=== PATIENT | male | born 1955 | race African-American/Black ===

== ENCOUNTER 2016-08-25 14:02 | Inpatient (IN) | payer OTHER ==
[~2016-08-25] VITALS: Ht 188 cm; Wt 113.8 kg
[~2016-08-25 14:02] MED LIST: BENAZEPRIL; PAIN MED; [UNRECOGNIZED DRUG - OTHER]
[2016-08-25] MEDS ORDERED: NITROGLYCERIN 2% 1 GM OINT PKT TD STA (14:34)
[2016-08-25] MEDS ORDERED: ASPIRIN 81 MG TAB PO STA (14:34)
[2016-08-25] MEDS ORDERED: LEVO75TA5 PO (14:47)
[2016-08-25] MEDS ORDERED: HC30CR25 TOP (14:47)
[2016-08-25] MEDS ORDERED: ASPI81TA3 PO (14:47)
[2016-08-25] MEDS ORDERED: HYD25 PO (14:47)
[2016-08-25] MEDS ORDERED: METO50TA16 PO (14:48)
[2016-08-25] MEDS ORDERED: ATOR40TA68 PO (14:48)
[2016-08-25] MEDS ORDERED: BENA40TA54 PO (14:48)
[2016-08-25] MEDS ORDERED: NAPR-688 PO (14:49)
[2016-08-25] MEDS ORDERED: TAMS0.4C2 PO (14:49)
[2016-08-25] MEDS ORDERED: NORT50CA PO (14:49)
[2016-08-25] MEDS ORDERED: NIFE90TA21 PO (14:49)
[2016-08-25] MEDS ORDERED: NITROGLYCERIN (SL) 0.4 MG TAB SL PRN ×2 (15:00→20:00)
--- NOTE | 2016-08-25 15:12 | RADRPT ---
PROCEDURE: Chest Radiograph. CLINICAL INDICATION: Chest pain. Shortness of breath. TECHNIQUE: Single frontal chest radiograph. COMPARISON: None available FINDINGS: The heart is mildly enlarged. There is moderate central vascular congestion. Diffuse interstitial opacities are present, likely related to pulmonary edema. No confluent or lobar infiltrate is seen. Trace effusions may be present. The bones are intact. IMPRESSION: 1. Cardiomegaly, central vascular congestion, and suggested pulmonary edema. Recommend correlation with CHF. 2. Possible trace bilateral pleural effusions. This can be confirmed with lateral view if clinic ally indicated. RPTAT: KK .Yuri Groves MD, MD Date Time Electronically viewed and signed by .Yuri Groves MD, MD on 08/25/2016 15:12 .B/
[2016-08-25 15:18] LABS: BASOPHILS % 0.6 % (0.0-2.0); EOSINOPHILS # 0.1 10^3/ul (0.0-0.5); EOSINOPHILS % 1.9 % (0.0-7.0); HEMOGLOBIN 13.9 g/dl (14.0-18.0); LYMPHOCYTES # 1.7 10^3/ul (0.8-2.9); LYMPHOCYTES % 29.3 % (15.0-51.0); MEAN CORPUSCULAR HEMOGLOBIN 30.4 pg (29.0-33.0); MEAN CORPUSCULAR VOLUME 92.1 fl (82.0-101.0); MEAN PLATELET VOLUME 12.3 fl (7.4-10.4); MONOCYTE # 0.5 10^3/ul (0.3-0.9); MONOCYTES % 8.1 % (0.0-11.0); NEUTROPHIL # 3.6 10^3/ul (1.6-7.5); NEUTROPHILS % 60.1 % (39.0-77.0); PLATELET COUNT 147 10^3/UL (140-440); RED BLOOD COUNT 4.56 10^6/ul (4.70-6.10); RED CELL DISTRIBUTION WIDTH 13.4 % (11.5-14.5); UNCORRECTED WBC 5.9 10^3/ul (4.8-10.8); WHITE BLOOD COUNT 5.9 10^3/ul (4.8-10.8)
[2016-08-25 15:21] LABS: INR 0.98
[2016-08-25 15:22] LABS: PARTIAL THROMBOPLASTIN TIME 30.9 Sec (25.0-35.0)
[2016-08-25 15:23] LABS: CONDITION 1
[2016-08-25 15:27] LABS: CREATININE 1.07 mg/dl (0.61-1.24)
[2016-08-25 15:28] LABS: CALCIUM 9.5 mg/dl (8.4-10.2)
[2016-08-25 15:30] LABS: POTASSIUM 2.9 mmol/L (3.5-5.1)
[2016-08-25] MEDS ORDERED: POTASSIUM CHLORIDE (SR) 20 MEQ TAB PO STA (15:30)
[2016-08-25 15:38] LABS: TROPONIN-I 0.014 ng/ml (0.00-0.12)
[2016-08-25] MEDS ORDERED: ACETAMINOPHEN 325 MG TAB PO PRN (17:30)
[2016-08-25] MEDS ORDERED: ONDANSETRON 4 MG INJ IV PRN ×2 (17:30→20:30)
--- NOTE | 2016-08-25 18:54 | ERA ---
ER Documentation Chief Complaint Date/Time DATE: 08/25/16 TIME: 18:51 Chief Complaint WORSENING SOB FOR THE PAST FEW MONTHS. WORSE NOW WITH CHEST PAIN HPI Patient is a 61-year-old male with hypertension and anemia presents with chest pain and shortness of breath. He said that his chest pain was "very hard". He had this happen last year as well. The symptoms started last night. The pain comes and goes. He describes it as a 3 out of 10 pain and it is midsternal. There is no radiation. Upon review of old medical records the patient one previous visit in 2011. ROS All systems reviewed and are negative except as per history of present illness. Medications Home Meds Reported Medications Tamsulosin Hcl* (Tamsulosin Hcl*) 0.4 Mg Cap.er.24h, 0.4 MG PO HS, CAP 08/25/16 Nortriptyline Hcl* (Nortriptyline Hcl*) 50 Mg Capsule, 50 MG PO QHS, TAB 08/25/16 Naproxen* (Naproxen*) 500 Mg Tablet, 500 MG PO BID Y for PAIN, TAB 08/25/16 Nifedipine* (Nifedipine ER*) 90 Mg Tablet.sa, 90 MG PO DAILY, TAB.SA 08/25/16 Metoprolol Succinate* (Toprol XL*) 50 Mg Tab.er.24h, 50 MG PO DAILY, #30 TAB 08/25/16 Benazepril Hcl* (Lotensin*) 40 Mg Tablet, 80 MG PO DAILY, #30 TAB 08/25/16 Atorvastatin* (Atorvastatin*) 40 Mg Tablet, 40 MG PO QHS, #30 TAB 08/25/16 Levothyroxine Sodium* (Levothyroxine Sodium*) 75 Mcg Tablet, 75 MCG PO BEFORE BREAKFAST, #30 TAB 08/25/16 Hydrocortisone* Topical (Hydrocortisone* Topical) 2.5%-28.3 Gm Cream..g., 1 APPLIC TOP BID, TUB 08/25/16 Aspirin* (Aspirin* Chew) 81 Mg Tab.chew, 81 MG PO DAILY, TAB.CHEW 08/25/16 Hydrochlorothiazide* (Hydrochlorothiazide*) 25 Mg Tab, 25 MG PO DAILY, #30 TAB 08/25/16 Discontinued Reported Medications [Pain Med] No Conflict Check 09/20/11 [Benazepril] No Conflict Check 09/20/11 [Finedipine] No Conflict Check 09/20/11 Allergies Allergies: Coded Allergies: No Known Allergy (Unverified , 09/20/11) PMhx/Soc Hx Cardiac Disorders: Yes (HTN (DENIES OTHER PMH/SURGERIES), HYPER LIPIDS) Hx Psychiatric Problems: No Hx Miscellaneous Medical Probl: No Hx Alcohol Use: No Hx Substance Use: No Hx Tobacco Use: No Smoking Status: Never smoker FmHx Family History: No coronary disease Physical Exam Vitals Vital Signs Date Time Temp Pulse Resp B/P Pulse Ox O2 Delivery O2 Flow Rate FiO2 08/25/16 16:28 56 18 156/108 97 Room Air 08/25/16 14:08 98.6 79 24 192/100 97 Physical Exam Const: No acute distress Head: Atraumatic Eyes: Normal Conjunctiva ENT: Normal External Ears, Nose and Mouth. Neck: Full range of motion..~ No meningismus. Resp: Clear to auscultation bilaterally Cardio: Regular rate and rhythm, no murmurs Abd: Soft, non tender, non distended. Normal bowel sounds Skin: No petechiae or rashes Back: No midline or flank tenderness Ext: No cyanosis, or edema Neur: Awake and alert Psych: Normal Mood and Affect Result Diagram: 08/25/16 1440 08/25/16 1440 Results 24 hrs Laboratory Tests Test 08/25/16 14:40 08/25/16 14:45 Anion Gap 14 Basophils # 0.010^3/ul Basophils % 0.6% Blood Morphology Comment Blood Urea Nitrogen 20mg/dl Calcium Level 9.5mg/dl Carbon Dioxide Level 32mmol/L Chloride Level 101mmol/L Creatinine 1.07mg/dl Eosinophils # 0.110^3/ul Eosinophils % 1.9% Glucose Level 98mg/dl Hematocrit 42.0% Hemoglobin 13.9g/dl Lymphocytes # 1.710^3/ul Lymphocytes % 29.3% Mean Corpuscular Hemoglobin 30.4pg Mean Corpuscular Hemoglobin Concent 33.0g/dl Mean Corpuscular Volume 92.1fl Mean Platelet Volume 12.3fl Monocytes # 0.510^3/ul Monocytes % 8.1% Neutrophils # 3.610^3/ul Neutrophils % 60.1% Nucleated Red Blood Cells # 0.010^3/ul Nucleated Red Blood Cells % 0.0/100WBC Platelet Count 74613^3/UL Potassium Level 2.9mmol/L Red Blood Count 4.5610^6/ul Red Cell Distribution Width 13.4% Sodium Level 144mmol/L Troponin I 0.014ng/ml White Blood Count 5.910^3/ul Activated Partial Thromboplast Time 30.9Sec INR International Normalized Ratio 0.98 Prothrombin Time 13.0Sec Prothrombin Time Ratio 1.0 Current Medications Medications (Trade) Dose Ordered Sig/Ankush Route PRN Reason Start Time Stop Time Status Last Admin Dose Admin Aspirin (Aspirin) 162 mg ONCE STAT PO 08/25/16 14:34 08/25/16 14:35 DC 08/25/16 15:04 Nitroglycerin (Nitroglycerin 2% Oint) 1 inch ONCE STAT TD 08/25/16 14:34 08/25/16 14:35 DC 08/25/16 15:04 Nitroglycerin (Nitroglycerin (Sl Tab) 0.4 Mg) 1 tab Q5M UP TO 3 DOSES PRN SL CHEST PAIN 08/25/16 15:00 08/25/16 15:04 Potassium Chloride (Klor-Con 20) 40 meq ONCE STAT PO 08/25/16 15:30 08/25/16 15:31 DC 08/25/16 15:58 Ondansetron HCl (Zofran Inj) 4 mg ER BRIDGE PRN IV NAUSEA AND/OR VOMITING 08/25/16 17:30 08/26/16 17:29 Acetaminophen (Tylenol Tab) 650 mg ER BRIDGE PRN PO MILD PAIN/FEVER 08/25/16 17:30 08/26/16 17:29 Procedures/MDM EKG #1 read by me: Rate/Rhythm: Regular rate and rhythm at a rate of 80 Intervals: Normal Impression: Sinus rhythm with flipped T waves in the lateral leads EKG #2 read by me: Rate/Rhythm: Regular rate and rhythm at a rate of 82 Intervals: Normal Impression: Sinus rhythm with flipped T waves in the lateral leads PROCEDURE: Chest Radiograph. CLINICAL INDICATION: Chest pain. Shortness of breath. TECHNIQUE: Single frontal chest radiograph. COMPARISON: None available FINDINGS: The heart is mildly enlarged. There is moderate central vascular congestion. Diffuse interstitial opacities are present, likely related to pulmonary edema. No confluent or lobar infiltrate is seen. Trace effusions may be present. The bones are intact. IMPRESSION: 1. Cardiomegaly, central vascular congestion, and suggested pulmonary edema. Recommend correlation with CHF. 2. Possible trace bilateral pleural effusions. This can be confirmed with lateral view if clinically indicated. RPTAT: KK .Yuri Groves MD, Date Time Electronically viewed and signed by .Yuri Groves MD, MD on 2016 15:12 Patient is a 61-year-old male with hypertension who presents with chest pain. The patient has risk factors of hypertension and his age with a complaint of chest pain shortness of breath which I am concerned may be acute coronary syndrome. The patient was given aspirin nitroglycerin. The patient will be admitted to the care of Dr. Morgan as the patient has [employer] insurance. The patient will be admitted to a telemetry bed. At this point I doubt pneumonia, pneumothorax, pulmonary embolism, or aortic dissection. The patient has hypokalemia and was given potassium by mouth. Departure Diagnosis: Primary Impression: Chest pain Qualified Code: R07.9 - Chest pain, unspecified type Additional Impressions: Shortness of breath Hypokalemia Condition: RACHEL Zafar MD Aug 25, 2016 18:53
[2016-08-25] MEDS ORDERED: LABETALOL HCL 20MG INJ IV ONE (19:30)
[2016-08-25] MEDS ORDERED: morphine 2 MG INJ IV PRN (20:00)
--- NOTE | 2016-08-25 20:00 | QN ---
Documentation Comment [id number] WAGNER JIMÉNEZ MD Aug 25, 2016 20:00
[2016-08-25] MEDS ORDERED: MAGNESIUM HYDROXIDE 30ML CUP PO PRN (20:30)
[2016-08-25] MEDS ORDERED: BISACODYL (EC) 5 MG TAB PO PRN (20:30)
[2016-08-25] MEDS ORDERED: NACL 0.9% 3 ML SYG IV SCH (20:30)
[2016-08-25] MEDS ORDERED: DOCUSATE SODIUM 100 MG CAP PO PRN (20:30)
--- NOTE | 2016-08-25 20:43 | HP ---
DATE OF ADMISSION: 08/25/2016 HISTORY OF PRESENT ILLNESS: The patient is a 61-year-old male with history of hypertension, present ed with chest pain. The patient in the ER was seen, blood pressure 192/100 and patient's potassium 2.9, is being admitted for further management. PAST MEDICAL HISTORY: Hypertension. The patient denies any diabetes mellitus. Has history of dysl ipidemia, history of BPH. ALLERGY HISTORY: NEGATIVE. FAMILY HISTORY: Hypertension. SOCIAL HISTORY: Noncontributory. MEDICATION HISTORY: 1. Aspirin. 2. Lipitor. 3. Benazepril. 4. Hydrochlorothiazide. 5. Hydrocortisone cream. 6. Levothyroxine. 7. Metoprolol. 8. Naproxen. 9. Nifedipine. 10. Nortriptyline. 11. Flomax. REVIEW OF SYSTEMS: HEENT: Unremarkable. RESPIRATORY: Unremarkable. CARDIOVASCULAR: As mentioned above. ABDOMEN: Unremarkable. EXTREMITIES: Unremarkable. GENITOURINARY: Unremarkable. MUSCULOSKELETAL: Unremarkable. PHYSICAL EXAMINATION: GENERAL: The patient is awake and alert. VITAL SIGNS: As mentioned above. HEAD: Atraumatic, normocephalic. EYES: Pupils equal, reactive to light. NECK: Supple. No JVD. LUNGS: Clear. CARDIOVASCULAR: S1, S2 are normal. ABDOMEN: Soft, nontender. Bowel sounds plus. No palpable mass or hepatosplenomegaly. No guarding , rebound tenderness. EXTREMITIES: No cyanosis, clubbing, edema. CENTRAL NERVOUS SYSTEM: The patient is awake, alert. No deficit. EKG shows sinus rhythm. The patient with left atrial enlargement and PVCs noted. The patient also has ____ in the V4, V5 and V6 with nonspecific ST-T changes. IMPRESSION: 1. Chest pain. 2. Rule out myocardial infarction. 3. Hypertension. 4. Hypokalemia. 5. Dyslipidemia. 6. Hypothyroidism by history. PLAN: Give this patient oxygen, aspirin, potassium supplementation, blood pressure controlled, card iology consultation, 2D echo. Orders were done. Dictated By: WAGNER BEAR/NTS Conf#: [id number] DID#: [id number]
[2016-08-25 20:55] VITALS: BP 177/85; PULSE 75; PULSE 79; RESP 20
[2016-08-25] MEDS: HYDROCORTISONE 2.5% 20 GM CR TOP SCH (21:00)
[2016-08-25] MEDS ORDERED: NORTRIPTYLINE 50 MG CAP PO SCH (21:00)
[2016-08-25 21:21] VITALS: Ht 188 cm; Wt 113.8 kg
[2016-08-25] MEDS: AL HYDROX/MG HYDROX/SIMETH 30 ML CUP PO SCH (22:04)
[2016-08-25] MEDS: ATORVASTATIN 40 MG TAB PO SCH (22:04)
[2016-08-25] MEDS: TAMSULOSIN (SR) 0.4 MG CAP PO SCH (22:05)
[2016-08-25 22:29] LABS: CK-MB 5.32 ng/ml (0.0-2.4)
[2016-08-25 22:30] LABS: TROPONIN-I 0.019 ng/ml (0.00-0.12)
[2016-08-25] MEDS: NS + KCL 20 MEQ 1,000 ML IV SCH (23:02)
[2016-08-25] MEDS: CALCIUM CARBONATE 500 MG CHEW TAB PO SCH (23:03)
[2016-08-25] MEDS: NORTRIPTYLINE 25 MG CAP PO SCH (23:04)
[2016-08-25] MEDS: hydrALAzine 20 MG INJ IV PRN (23:06)
[2016-08-25] MEDS: ACETAMINOPHEN 325 MG TAB PO PRN (23:21)
[2016-08-25 23:26] VITALS: BP 169/93; PULSE 75
[2016-08-26] VITALS (13 sets, daily range): BP systolic 133–181; BP diastolic 75–102; PULSE 79–92; RESP 18–20
[2016-08-26] MEDS: PANTOPRAZOLE 40 MG INJ IV SCH (05:11)
[2016-08-26] MEDS: LEVOTHYROXINE 75 MCG TAB PO SCH (06:42)
[2016-08-26] MEDS: ASPIRIN 81 MG TAB PO SCH (08:10)
[2016-08-26] MEDS: CALCIUM CARBONATE 500 MG CHEW TAB PO SCH ×4 (08:10→20:07)
[2016-08-26] MEDS: NIFEdipine (XL) 90 MG TAB PO SCH (08:10)
[2016-08-26] MEDS: AL HYDROX/MG HYDROX/SIMETH 30 ML CUP PO SCH ×4 (08:11→20:07)
[2016-08-26] MEDS: HYDROCHLOROTHIAZIDE 25 MG TAB PO SCH (08:11)
[2016-08-26] MEDS: METOPROLOL (XL) 50 MG TAB PO SCH (08:11)
[2016-08-26] MEDS: ENOXAPARIN 40 MG/0.4 ML SYG SC SCH (08:15)
[2016-08-26] MEDS: HYDROCORTISONE 2.5% 20 GM CR TOP SCH ×2 (08:17→20:08)
[2016-08-26 08:30] LABS: TROPONIN-I 0.016 ng/ml (0.00-0.12)
[2016-08-26] MEDS: BENAZEPRIL 40 MG TAB PO SCH (08:32)
[2016-08-26 08:43] LABS: CK-MB 3.69 ng/ml (0.0-2.4)
[2016-08-26 09:30] LABS: CHOL/HDL RATIO 6.3 RATIO
[2016-08-26] MEDS: ACETAMINOPHEN 325 MG TAB PO PRN (12:23)
--- NOTE | 2016-08-26 13:52 | PN ---
Date/Time of Note Date/Time of Note DATE: 08/26/16 TIME: 13:51 Assessment/Plan VTE Prophylaxis VTE Prophylaxis Intervention: other Lines/Catheters [facility] Type [facility]from [facility] [place] Urinary Cath still in place: No Assessment/Plan Chief Complaint/Hosp Course IMPRESSION: 1. Chest pain. 2. Rule out myocardial infarction. 3. Hypertension. 4. Hypokalemia. 5. Dyslipidemia. 6. Hypothyroidism by history. plan dr armas to see Problems: Subjective 24 Hr Interval Summary Cardiovascular: no complaints Gastrointestinal: no complaints Genitourinary: no complaints Exam/Review of Systems Vital Signs Vitals Vital Signs Date Time Temp Pulse Resp B/P Pulse Ox O2 Delivery O2 Flow Rate FiO2 08/26/16 12:07 83 08/26/16 12:00 98.3 20 152/88 99 08/26/16 08:42 Nasal Cannula 2.0 Intake and Output 08/25/16 08/25/16 08/26/16 15:00 23:00 07:00 Intake Total 1060 ml Output Total 1080 ml Balance -20 ml Exam Respiratory: clear to auscultation Cardiovascular: regular rate and rhythm Gastrointestinal: soft Musculoskeletal: nl extremities to inspection Extremities: normal pulses Results Result Diagram: 08/25/16 1440 08/25/16 1440 Results 24 hrs Laboratory Tests Test 08/25/16 14:40 08/25/16 14:45 08/25/16 21:00 08/26/16 00:18 Anion Gap 14 Basophils # 0.0 Basophils % 0.6 Blood Morphology Comment Blood Urea Nitrogen 20 Calcium Level 9.5 Carbon Dioxide Level 32 H Chloride Level 101 Creatinine 1.07 Eosinophils # 0.1 Eosinophils % 1.9 Glucose Level 98 Hematocrit 42.0 Hemoglobin 13.9 L Lymphocytes # 1.7 Lymphocytes % 29.3 Mean Corpuscular Hemoglobin 30.4 Mean Corpuscular Hemoglobin Concent 33.0 Mean Corpuscular Volume 92.1 Mean Platelet Volume 12.3 H Monocytes # 0.5 Monocytes % 8.1 Neutrophils # 3.6 Neutrophils % 60.1 Nucleated Red Blood Cells # 0.0 Nucleated Red Blood Cells % 0.0 Platelet Count 147 Potassium Level 2.9 *L Red Blood Count 4.56 L Red Cell Distribution Width 13.4 Sodium Level 144 Troponin I 0.014 0.019 0.022 White Blood Count 5.9 Activated Partial Thromboplast Time 30.9 INR International Normalized Ratio 0.98 Prothrombin Time 13.0 Prothrombin Time Ratio 1.0 Creatine Kinase 163 Creatine Kinase Index 3.3 Creatinine Kinase MB (Mass) 5.32 H Test 08/26/16 06:40 Cholesterol Level 179 Cholesterol/HDL Ratio 6.3 Creatine Kinase 143 Creatine Kinase Index 2.6 Creatinine Kinase MB (Mass) 3.69 H HDL Cholesterol 28 L LDL Cholesterol, Calculated 122 Triglycerides Level 145 Troponin I 0.016 Medications Medications Current Medications Aspirin (Aspirin) 81 mg DAILY PO Last administered on 08/26/16 08:10; Admin Dose 81 MG; Start 08/26/16 at 09:00 Atorvastatin Calcium (Lipitor) 40 mg QHS PO Last administered on 08/25/16 22: 04; Admin Dose 40 MG; Start 08/25/16 at 21:00 Benazepril HCl (Lotensin) 80 mg DAILY PO Last administered on 08/26/16 08:32; Admin Dose 80 MG; Start 08/26/16 at 09:00 Hydrochlorothiazide (Hydrochlorothiazide) 25 mg DAILY PO Last administered on 08:11; Admin Dose 25 MG; Start 08/26/16 at 09:00 Hydrocortisone (Hydrocortisone 2.5% Cr) 1 applic BID TOP Last administered on 08:17; Admin Dose 1 APPLIC; Start 08/25/16 at 21:00 Metoprolol Succinate (Toprol Xl) 50 mg DAILY PO Last administered on 08/26/16 08:11; Admin Dose 50 MG; Start 08/26/16 at 09:00 Nifedipine (Procardia Xl) 90 mg DAILY PO Last administered on 08/26/16 08:10; Admin Dose 90 MG; Start 08/26/16 at 09:00 Tamsulosin HCl (Flomax) 0.4 mg HS PO Last administered on 08/25/16 22:05; Admin Dose 0.4 MG; Start 08/25/16 at 21:00 Al Hydrox/Mg Hydrox/Simethicone (Mag-Al Plus) 30 ml QID PO Last administered on 08/26/16 12:23; Admin Dose 30 ML; Start 08/25/16 at 21:00 Calcium Carbonate (Tums) 500 mg QID PO Last administered on 08/26/16 12:23; Admin Dose 500 MG; Start 08/25/16 at 21:00 Nitroglycerin (Nitroglycerin (Sl Tab) 0.4 Mg) 1 tab Q5M PRN SL CHEST PAIN; Start 08/25/16 at 20:00 Morphine Sulfate 2 mg 2 mg Q2H PRN IV PAIN LEVEL 4-6; Start 08/25/16 at 20:00 Potassium Chloride/Sodium Chloride (NS-KCl 20 Meq) 1,000 ml @ 40 mls/hr Q24H IV Last administered on 08/25/16 23:02; Admin Dose 40 MLS/HR; Start 08/25/16 at 20:03 Ondansetron HCl (Zofran Inj) 4 mg Q6H PRN IV NAUSEA AND/OR VOMITING; Start at 20:30 Acetaminophen (Tylenol Tab) 650 mg Q6H PRN PO PAIN LEVEL 1-3 OR FEVER Last administered on 08/26/16 12:23; Admin Dose 650 MG; Start 08/25/16 at 20:30 Docusate Sodium (Colace) 100 mg Q12H PRN PO CONSTIPATION; Start 08/25/16 at 20: 30 Magnesium Hydroxide (Milk Of Mag) 30 ml DAILY PRN PO CONSTIPATION; Start at 20:30 Bisacodyl (Dulcolax) 5 mg DAILY PRN PO CONSTIPATION; Start 08/25/16 at 20:30 Pantoprazole (Protonix Iv) 40 mg DAILY@06 IV Last administered on 08/26/16 05: 11; Admin Dose 40 MG; Start 08/26/16 at 06:00 Enoxaparin Sodium (Lovenox) 40 mg DAILY SC Last administered on 08/26/16 08:15 ; Admin Dose 40 MG; Start 08/26/16 at 09:00 Nortriptyline HCl (Aventyl) 50 mg QHS PO Last administered on 08/25/16 23:04; Admin Dose 50 MG; Start 08/25/16 at 22:30 Hydralazine HCl (Apresoline) 10 mg Q6H PRN IV ELEVATED BLOOD PRESSURE Last administered on 08/25/16 23:06; Admin Dose 10 MG; Start 08/25/16 at 23:00 Influenza Virus Vaccine (Fluzone) 0.5 ml ONCE ONCE IM* ; Start 08/28/16 at 09:00 ; Stop 08/28/16 at 09:01 WAGNER JIMÉNEZ MD Aug 26, 2016 13:52
[2016-08-26] MEDS: NORTRIPTYLINE 25 MG CAP PO SCH (20:08)
[2016-08-26] MEDS: TAMSULOSIN (SR) 0.4 MG CAP PO SCH (20:08)
[2016-08-26] MEDS: ATORVASTATIN 40 MG TAB PO SCH (20:08)
[2016-08-27] VITALS (14 sets, daily range): BP systolic 136–168; BP diastolic 69–88; PULSE 73–82; RESP 18–20
[2016-08-27] MEDS: NS + KCL 20 MEQ 1,000 ML IV SCH ×3 (00:13→23:46)
[2016-08-27] MEDS: PANTOPRAZOLE 40 MG INJ IV SCH (06:05)
[2016-08-27] MEDS: LEVOTHYROXINE 75 MCG TAB PO SCH (06:05)
[2016-08-27 08:30] LABS: CREATININE 0.86 mg/dl (0.61-1.24)
[2016-08-27 08:31] LABS: CALCIUM 9.4 mg/dl (8.4-10.2)
[2016-08-27 08:41] LABS: POTASSIUM 2.7 mmol/L (3.5-5.1)
[2016-08-27] MEDS ORDERED: POTASSIUM CHLORIDE 250 ML IVPB STA (08:57)
[2016-08-27] MEDS: BENAZEPRIL 40 MG TAB PO SCH (09:29)
[2016-08-27] MEDS: CALCIUM CARBONATE 500 MG CHEW TAB PO SCH ×4 (09:29→20:29)
[2016-08-27] MEDS: ASPIRIN 81 MG TAB PO SCH (09:30)
[2016-08-27] MEDS: HYDROCHLOROTHIAZIDE 25 MG TAB PO SCH (09:30)
[2016-08-27] MEDS: NIFEdipine (XL) 90 MG TAB PO SCH (09:30)
[2016-08-27] MEDS: AL HYDROX/MG HYDROX/SIMETH 30 ML CUP PO SCH ×4 (09:30→20:29)
[2016-08-27] MEDS: HYDROCORTISONE 2.5% 20 GM CR TOP SCH ×2 (09:31→20:29)
[2016-08-27] MEDS: ENOXAPARIN 40 MG/0.4 ML SYG SC SCH (09:37)
[2016-08-27] MEDS: METOPROLOL (XL) 50 MG TAB PO SCH (09:38)
[2016-08-27] MEDS ORDERED: POTASSIUM CHLORIDE (SR) 10 MEQ TAB PO ONE ×2 (10:00)
--- NOTE | 2016-08-27 15:47 | PN ---
Date/Time of Note Date/Time of Note DATE: 08/27/16 TIME: 15:46 Assessment/Plan VTE Prophylaxis VTE Prophylaxis Intervention: other Lines/Catheters IV C[facility]ter Type (from [facility] Peripheral IV Urinary Cath still in place: No Assessment/Plan Chief Complaint/Hosp Course IMPRESSION: 1. Chest pain. 2. Rule out myocardial infarction. 3. Hypertension. 4. Hypokalemia. 5. Dyslipidemia. 6. Hypothyroidism by history. plan kcl terese scan per cardio Problems: Subjective 24 Hr Interval Summary Cardiovascular: no complaints Gastrointestinal: no complaints Exam/Review of Systems Vital Signs Vitals Vital Signs Date Time Temp Pulse Resp B/P Pulse Ox O2 Delivery O2 Flow Rate FiO2 08/27/16 12:11 75 08/27/16 11:57 97.9 20 136/88 98 Room Air 08/27/16 10:51 2.0 Intake and Output 08/26/16 08/26/16 08/27/16 15:00 23:00 07:00 Intake Total 500 ml 1400 ml Output Total 1725 ml Balance 500 ml -325 ml Exam Neck: supple Respiratory: clear to auscultation Cardiovascular: regular rate and rhythm Gastrointestinal: soft Musculoskeletal: nl extremities to inspection Extremities: normal pulses Results Result Diagram: 08/25/16 1440 08/27/16 0611 Results 24 hrs Laboratory Tests Test 08/27/16 06:11 Anion Gap 12 Blood Urea Nitrogen 13 Calcium Level 9.4 Carbon Dioxide Level 34 H Chloride Level 99 Creatinine 0.86 Glucose Level 104 Potassium Level 2.7 *L Sodium Level 142 Medications Medications Current Medications Aspirin (Aspirin) 81 mg DAILY PO Last administered on 08/27/16 09:30; Admin Dose 81 MG; Start 08/26/16 at 09:00 Atorvastatin Calcium (Lipitor) 40 mg QHS PO Last administered on 08/26/16 20: 08; Admin Dose 40 MG; Start 08/25/16 at 21:00 Benazepril HCl (Lotensin) 80 mg DAILY PO Last administered on 08/27/16 09:29; Admin Dose 80 MG; Start 08/26/16 at 09:00 Hydrochlorothiazide (Hydrochlorothiazide) 25 mg DAILY PO Last administered on 09:30; Admin Dose 25 MG; Start 08/26/16 at 09:00 Hydrocortisone (Hydrocortisone 2.5% Cr) 1 applic BID TOP Last administered on 09:31; Admin Dose 1 APPLIC; Start 08/25/16 at 21:00 Metoprolol Succinate (Toprol Xl) 50 mg DAILY PO Last administered on 08/27/16 09:38; Admin Dose 50 MG; Start 08/26/16 at 09:00 Nifedipine (Procardia Xl) 90 mg DAILY PO Last administered on 08/27/16 09:30; Admin Dose 90 MG; Start 08/26/16 at 09:00 Tamsulosin HCl (Flomax) 0.4 mg HS PO Last administered on 08/26/16 20:08; Admin Dose 0.4 MG; Start 08/25/16 at 21:00 Al Hydrox/Mg Hydrox/Simethicone (Mag-Al Plus) 30 ml QID PO Last administered on 08/27/16 09:30; Admin Dose 30 ML; Start 08/25/16 at 21:00 Calcium Carbonate (Tums) 500 mg QID PO Last administered on 08/27/16 09:29; Admin Dose 500 MG; Start 08/25/16 at 21:00 Nitroglycerin (Nitroglycerin (Sl Tab) 0.4 Mg) 1 tab Q5M PRN SL CHEST PAIN; Start 08/25/16 at 20:00 Morphine Sulfate 2 mg 2 mg Q2H PRN IV PAIN LEVEL 4-6; Start 08/25/16 at 20:00 Potassium Chloride/Sodium Chloride (NS-KCl 20 Meq) 1,000 ml @ 40 mls/hr Q24H IV Last administered on 08/27/16 00:13; Admin Dose 40 MLS/HR; Start 08/25/16 at 20:03 Ondansetron HCl (Zofran Inj) 4 mg Q6H PRN IV NAUSEA AND/OR VOMITING; Start at 20:30 Acetaminophen (Tylenol Tab) 650 mg Q6H PRN PO PAIN LEVEL 1-3 OR FEVER Last administered on 08/26/16 12:23; Admin Dose 650 MG; Start 08/25/16 at 20:30 Docusate Sodium (Colace) 100 mg Q12H PRN PO CONSTIPATION; Start 08/25/16 at 20: 30 Magnesium Hydroxide (Milk Of Mag) 30 ml DAILY PRN PO CONSTIPATION; Start at 20:30 Bisacodyl (Dulcolax) 5 mg DAILY PRN PO CONSTIPATION; Start 08/25/16 at 20:30 Pantoprazole (Protonix Iv) 40 mg DAILY@06 IV Last administered on 08/27/16 06: 05; Admin Dose 40 MG; Start 08/26/16 at 06:00 Enoxaparin Sodium (Lovenox) 40 mg DAILY SC Last administered on 08/27/16 09:37 ; Admin Dose 40 MG; Start 08/26/16 at 09:00 Nortriptyline HCl (Aventyl) 50 mg QHS PO Last administered on 08/26/16 20:08; Admin Dose 50 MG; Start 08/25/16 at 22:30 Hydralazine HCl (Apresoline) 10 mg Q6H PRN IV ELEVATED BLOOD PRESSURE Last administered on 08/25/16 23:06; Admin Dose 10 MG; Start 08/25/16 at 23:00 Influenza Virus Vaccine (Fluzone) 0.5 ml ONCE ONCE IM* ; Start 08/28/16 at 09:00 ; Stop 08/28/16 at 09:01 WAGNER JIMÉNEZ MD Aug 27, 2016 15:47
[2016-08-27] MEDS: TAMSULOSIN (SR) 0.4 MG CAP PO SCH (20:29)
[2016-08-27] MEDS: ATORVASTATIN 40 MG TAB PO SCH (20:29)
[2016-08-27] MEDS: NORTRIPTYLINE 25 MG CAP PO SCH (20:31)
[2016-08-27 21:31] LABS: POTASSIUM 3.3 mmol/L (3.5-5.1)
[2016-08-27 21:34] LABS: CREATININE 1.14 mg/dl (0.61-1.24)
[2016-08-27 21:35] LABS: CALCIUM 9.6 mg/dl (8.4-10.2)
[2016-08-27] MEDS: ACETAMINOPHEN 325 MG TAB PO PRN (23:54)
[2016-08-28] VITALS (14 sets, daily range): BP systolic 132–154; BP diastolic 72–84; PULSE 72–83; RESP 17–20
[2016-08-28] MEDS: LEVOTHYROXINE 75 MCG TAB PO SCH (06:24)
[2016-08-28] MEDS: PANTOPRAZOLE 40 MG INJ IV SCH (06:24)
[2016-08-28] MEDS ORDERED: REGADENOSON 0.4 MG/5 ML SYG ONE (08:38)
[2016-08-28] MEDS ORDERED: INFLUENZA VIRUS VACCINE 0.5 ML (DISPENSING) IM* ONE (09:00)
--- NOTE | 2016-08-28 09:42 | PN ---
Date/Time of Note Date/Time of Note DATE: 08/28/16 TIME: 09:41 Assessment/Plan VTE Prophylaxis VTE Prophylaxis Intervention: other Lines/Catheters IV [facility] Type (from [facility] Peripheral IV Urinary Cath still in place: No Assessment/Plan Chief Complaint/Hosp Course IMPRESSION: 1. Chest pain. 2. Rule out myocardial infarction. 3. Hypertension. 4. Hypokalemia. 5. Dyslipidemia. 6. Hypothyroidism by history. plan kcl terese scan per cardio Problems: Subjective 24 Hr Interval Summary Respiratory: no complaints Cardiovascular: no complaints Gastrointestinal: no complaints Genitourinary: no complaints Exam/Review of Systems Vital Signs Vitals Vital Signs Date Time Temp Pulse Resp B/P Pulse Ox O2 Delivery O2 Flow Rate FiO2 08/28/16 08:11 73 08/28/16 07:55 Nasal Cannula 2.0 08/28/16 04:49 97.9 18 132/72 99 Intake and Output 08/27/16 08/27/16 08/28/16 15:00 23:00 07:00 Intake Total 1780 ml 150 ml Output Total 890 ml 350 ml 1825 ml Balance -890 ml 1430 ml -1675 ml Exam Neck: supple Respiratory: clear to auscultation Cardiovascular: regular rate and rhythm Gastrointestinal: soft Musculoskeletal: nl extremities to inspection Results Result Diagram: 08/25/16 1440 08/27/16 2100 Results 24 hrs Laboratory Tests Test 08/27/16 16:30 08/27/16 21:00 Potassium Level 3.3 L 3.3 L Anion Gap 15 Blood Urea Nitrogen 17 Calcium Level 9.6 Carbon Dioxide Level 32 H Chloride Level 99 Creatinine 1.14 Glucose Level 116 Sodium Level 143 Medications Medications Current Medications Aspirin (Aspirin) 81 mg DAILY PO Last administered on 08/27/16 09:30; Admin Dose 81 MG; Start 08/26/16 at 09:00 Atorvastatin Calcium (Lipitor) 40 mg QHS PO Last administered on 08/27/16 20: 29; Admin Dose 40 MG; Start 08/25/16 at 21:00 Benazepril HCl (Lotensin) 80 mg DAILY PO Last administered on 08/27/16 09:29; Admin Dose 80 MG; Start 08/26/16 at 09:00 Hydrochlorothiazide (Hydrochlorothiazide) 25 mg DAILY PO Last administered on 09:30; Admin Dose 25 MG; Start 08/26/16 at 09:00 Hydrocortisone (Hydrocortisone 2.5% Cr) 1 applic BID TOP Last administered on 20:29; Admin Dose 1 APPLIC; Start 08/25/16 at 21:00 Metoprolol Succinate (Toprol Xl) 50 mg DAILY PO Last administered on 08/27/16 09:38; Admin Dose 50 MG; Start 08/26/16 at 09:00 Nifedipine (Procardia Xl) 90 mg DAILY PO Last administered on 08/27/16 09:30; Admin Dose 90 MG; Start 08/26/16 at 09:00 Tamsulosin HCl (Flomax) 0.4 mg HS PO Last administered on 08/27/16 20:29; Admin Dose 0.4 MG; Start 08/25/16 at 21:00 Al Hydrox/Mg Hydrox/Simethicone (Mag-Al Plus) 30 ml QID PO Last administered on 08/27/16 20:29; Admin Dose 30 ML; Start 08/25/16 at 21:00 Calcium Carbonate (Tums) 500 mg QID PO Last administered on 08/27/16 20:29; Admin Dose 500 MG; Start 08/25/16 at 21:00 Nitroglycerin (Nitroglycerin (Sl Tab) 0.4 Mg) 1 tab Q5M PRN SL CHEST PAIN; Start 08/25/16 at 20:00 Morphine Sulfate 2 mg 2 mg Q2H PRN IV PAIN LEVEL 4-6; Start 08/25/16 at 20:00 Potassium Chloride/Sodium Chloride (NS-KCl 20 Meq) 1,000 ml @ 40 mls/hr Q24H IV Last administered on 08/27/16 23:46; Admin Dose 40 MLS/HR; Start 08/25/16 at 20:03 Ondansetron HCl (Zofran Inj) 4 mg Q6H PRN IV NAUSEA AND/OR VOMITING; Start at 20:30 Acetaminophen (Tylenol Tab) 650 mg Q6H PRN PO PAIN LEVEL 1-3 OR FEVER Last administered on 08/27/16 23:54; Admin Dose 650 MG; Start 08/25/16 at 20:30 Docusate Sodium (Colace) 100 mg Q12H PRN PO CONSTIPATION; Start 08/25/16 at 20: 30 Magnesium Hydroxide (Milk Of Mag) 30 ml DAILY PRN PO CONSTIPATION; Start at 20:30 Bisacodyl (Dulcolax) 5 mg DAILY PRN PO CONSTIPATION; Start 08/25/16 at 20:30 Pantoprazole (Protonix Iv) 40 mg DAILY@06 IV Last administered on 08/28/16 06: 24; Admin Dose 40 MG; Start 08/26/16 at 06:00 Enoxaparin Sodium (Lovenox) 40 mg DAILY SC Last administered on 08/27/16 09:37 ; Admin Dose 40 MG; Start 08/26/16 at 09:00 Nortriptyline HCl (Aventyl) 50 mg QHS PO Last administered on 08/26/16 20:08; Admin Dose 50 MG; Start 08/25/16 at 22:30 Hydralazine HCl (Apresoline) 10 mg Q6H PRN IV ELEVATED BLOOD PRESSURE Last administered on 08/25/16 23:06; Admin Dose 10 MG; Start 08/25/16 at 23:00 WAGNER JIMÉNEZ MD Aug 28, 2016 09:42
--- NOTE | 2016-08-28 10:34 | CONS ---
Date/Time of Note Date/Time of Note DATE: 08/28/16 TIME: 10:32 Assessment/Plan Assessment/Plan Additional Assessment/Plan 1. Precordial pain - suggestive of angina. Will facilitate Magi today 2. HTN - on hig hsde, will resume RX s/p Stress test 3. Abn ECG - no ST elevations noted, non-spec changes 4. Hypo K+ - replace as needed per Dr. Morgan 5. h/o CVA - no bnew changes now, primary team follows Consultation Date/Type/Reason Admit Date/Time Aug 25, 2016 at 20:51 Initial Consult Date 24 HR Interval Summary Free Text/Dictation No acute change - no CP now - Magi Stress test today. ROS: No fever, no chills, no nausea, no vomiting, no diarrhea/constipation No recent weight changes No chest pain, no PND, no orthopnea No dizziness, blurred vision No thirst, no heat or cold intolerance Exam/Review of Systems Vital Signs Vitals Vital Signs Date Time Temp Pulse Resp B/P Pulse Ox O2 Delivery O2 Flow Rate FiO2 08/28/16 10:06 97.8 67 17 146/81 100 08/28/16 07:55 Nasal Cannula 2.0 Intake and Output 08/27/16 08/27/16 08/28/16 15:00 23:00 07:00 Intake Total 1780 ml 150 ml Output Total 890 ml 350 ml 1825 ml Balance -890 ml 1430 ml -1675 ml Exam General: WN/WD/NAD, AOx 3 HEENT: Unicetric/atraumatic/EOMI (follow commands) NECK: JVD elevated, no thyromegaly Lymph: no lymphadenopathy HEART: regular with no S3, II/ systolic murmur at apex LUNGS: Coarse sounds ABD: soft, NT, ND, +BS : Intact Neuro: non focal SKIN: chronic changes EXT: trace edema Results Result Diagram: 08/25/16 1440 08/27/16 2100 Results 24 hrs Laboratory Tests Test 08/27/16 16:30 08/27/16 21:00 Potassium Level 3.3 L 3.3 L Anion Gap 15 Blood Urea Nitrogen 17 Calcium Level 9.6 Carbon Dioxide Level 32 H Chloride Level 99 Creatinine 1.14 Glucose Level 116 Sodium Level 143 Medications Medications Current Medications Aspirin (Aspirin) 81 mg DAILY PO Last administered on 08/27/16 09:30; Admin Dose 81 MG; Start 08/26/16 at 09:00 Atorvastatin Calcium (Lipitor) 40 mg QHS PO Last administered on 08/27/16 20: 29; Admin Dose 40 MG; Start 08/25/16 at 21:00 Benazepril HCl (Lotensin) 80 mg DAILY PO Last administered on 08/27/16 09:29; Admin Dose 80 MG; Start 08/26/16 at 09:00 Hydrochlorothiazide (Hydrochlorothiazide) 25 mg DAILY PO Last administered on 09:30; Admin Dose 25 MG; Start 08/26/16 at 09:00 Hydrocortisone (Hydrocortisone 2.5% Cr) 1 applic BID TOP Last administered on 20:29; Admin Dose 1 APPLIC; Start 08/25/16 at 21:00 Metoprolol Succinate (Toprol Xl) 50 mg DAILY PO Last administered on 08/27/16 09:38; Admin Dose 50 MG; Start 08/26/16 at 09:00 Nifedipine (Procardia Xl) 90 mg DAILY PO Last administered on 08/27/16 09:30; Admin Dose 90 MG; Start 08/26/16 at 09:00 Tamsulosin HCl (Flomax) 0.4 mg HS PO Last administered on 08/27/16 20:29; Admin Dose 0.4 MG; Start 08/25/16 at 21:00 Al Hydrox/Mg Hydrox/Simethicone (Mag-Al Plus) 30 ml QID PO Last administered on 08/27/16 20:29; Admin Dose 30 ML; Start 08/25/16 at 21:00 Calcium Carbonate (Tums) 500 mg QID PO Last administered on 08/27/16 20:29; Admin Dose 500 MG; Start 08/25/16 at 21:00 Nitroglycerin (Nitroglycerin (Sl Tab) 0.4 Mg) 1 tab Q5M PRN SL CHEST PAIN; Start 08/25/16 at 20:00 Morphine Sulfate 2 mg 2 mg Q2H PRN IV PAIN LEVEL 4-6; Start 08/25/16 at 20:00 Potassium Chloride/Sodium Chloride (NS-KCl 20 Meq) 1,000 ml @ 40 mls/hr Q24H IV Last administered on 08/27/16 23:46; Admin Dose 40 MLS/HR; Start 08/25/16 at 20:03 Ondansetron HCl (Zofran Inj) 4 mg Q6H PRN IV NAUSEA AND/OR VOMITING; Start at 20:30 Acetaminophen (Tylenol Tab) 650 mg Q6H PRN PO PAIN LEVEL 1-3 OR FEVER Last administered on 08/27/16 23:54; Admin Dose 650 MG; Start 08/25/16 at 20:30 Docusate Sodium (Colace) 100 mg Q12H PRN PO CONSTIPATION; Start 08/25/16 at 20: 30 Magnesium Hydroxide (Milk Of Mag) 30 ml DAILY PRN PO CONSTIPATION; Start at 20:30 Bisacodyl (Dulcolax) 5 mg DAILY PRN PO CONSTIPATION; Start 08/25/16 at 20:30 Pantoprazole (Protonix Iv) 40 mg DAILY@06 IV Last administered on 08/28/16 06: 24; Admin Dose 40 MG; Start 08/26/16 at 06:00 Enoxaparin Sodium (Lovenox) 40 mg DAILY SC Last administered on 08/27/16 09:37 ; Admin Dose 40 MG; Start 08/26/16 at 09:00 Nortriptyline HCl (Aventyl) 50 mg QHS PO Last administered on 08/26/16 20:08; Admin Dose 50 MG; Start 08/25/16 at 22:30 Hydralazine HCl (Apresoline) 10 mg Q6H PRN IV ELEVATED BLOOD PRESSURE Last administered on 08/25/16 23:06; Admin Dose 10 MG; Start 08/25/16 at 23:00 ROLY TERAN MD Aug 28, 2016 10:34
--- NOTE | 2016-08-28 11:00 | RADRPT ---
Echocardiogram Report Patient Name: JARRED WEAVER Gender: Male Date: 1955 Study Date: 26-Aug-2016 [employer] Driver: [facility] Location: [id number] Ref. Physician: WAGNER JIMÉNEZ Quality: Technically Difficult Study Procedures: Transthoracic echocardiogram with complete 2D, M-Mode, and doppler examination. Indications: Coronary Artery Disease. 2D/M Mode Doppler Measurement Value Normal Ranges Measurement Value Normal Ranges LVIDd 2D 5.1 3.5 - 5.6 cm AV Peak [place] 1.3 m/sec LVIDs 2D 4.0 2.1 - 4.1 cm AV Peak PG 7.0 mmHg FS 2D 22.0 % LVOT Peak [place] 0.8 m/sec LVPWd 2D 1.4 0.6 - 1.1 cm LVOT Peak PG 2.0 mmHg IVSd 2D 1.4 0.6 - 1.1 cm MV E Peak [place] 0.9 m/sec IVS/LVPW 2D 1.1 MV A Peak [place] 0.4 m/sec AoR Diam 2D 2.8 2.0 - 3.7 cm MV E/A 2.4 LA/Ao 2D 2 0 - 1 MV Decel Time 176 msec EDV 2D 133.0 cm3 MV E/A 2.4 ESV 2D 63.0 cm3 LA Dimen 2D 4.3 2.3 - 4.0 cm Findings Left Ventricle: Lower limits of normal systolic function. Normal left ventricular cavity size. Moderate concentric left ventricular hypertrophy. Ejection fraction is visually estimated at 45 %. Abnormal Diastolic Function. Right Ventricle: Normal right ventricular size. Normal right ventricular systolic function. Left Atrium: There is mild enlargement of left atrium. Right Atrium: The right atrium is normal in size. Prominent Eustachian valve (normal variant). Mitral Valve: Mild mitral leaflet calcification. Mild mitral annular calcification. Trace mitral regurgitation. Aortic Valve: Trileaflet aortic valve. Tricuspid Valve: Normal appearance and function of the tricuspid valve with trace physiologic regurgitation. Pericardium: Normal pericardium with no significant pericardial effusion. Aorta: Normal aortic root. IVC: Dilated IVC with respiratory collapse consistent with elevated right atrial pressure. Conclusions 1.Lower limits of normal systolic function. Normal left ventricular cavity size. Moderate concentric left ventricular hypertrophy. Ejection fraction is visually estimated at 45 %. Abnormal Diastolic Function. 2.Mild mitral leaflet calcification. Mild mitral annular calcification. Trace mitral regurgitation. 3.Trileaflet aortic valve. 4.Normal appearance and function of the tricuspid valve with trace physiologic regurgitation. Electronically Signed By: Orestes Chapman 28-Aug-2016 10:58:58 -0800 Patient Name: JARRED WEAVER Study Date: 26-Aug-2016 [id number]
[2016-08-28] MEDS: AL HYDROX/MG HYDROX/SIMETH 30 ML CUP PO SCH ×4 (11:19→20:21)
[2016-08-28] MEDS: CALCIUM CARBONATE 500 MG CHEW TAB PO SCH ×4 (11:20→20:21)
[2016-08-28] MEDS: ASPIRIN 81 MG TAB PO SCH (11:20)
[2016-08-28] MEDS: HYDROCHLOROTHIAZIDE 25 MG TAB PO SCH (11:21)
[2016-08-28] MEDS: BENAZEPRIL 40 MG TAB PO SCH (11:21)
[2016-08-28] MEDS: METOPROLOL (XL) 50 MG TAB PO SCH (11:22)
[2016-08-28] MEDS: NIFEdipine (XL) 90 MG TAB PO SCH (11:22)
[2016-08-28] MEDS: ENOXAPARIN 40 MG/0.4 ML SYG SC SCH (11:23)
[2016-08-28] MEDS: HYDROCORTISONE 2.5% 20 GM CR TOP SCH ×2 (11:25→20:21)
[2016-08-28] MEDS: POTASSIUM CHLORIDE (SR) 20 MEQ TAB PO SCH ×2 (13:44→20:21)
--- NOTE | 2016-08-28 15:18 | RADRPT ---
PROCEDURE: Lexiscan myocardial perfusion study CLINICAL INDICATION: 61 -year-old patient complaining of chest pain. TECHNIQUE: Lexiscan 0.4 mg intravenously separate acquisition gated myocardial perfusion SPECT usi ng Tc 99m Myoview 30.0 mCi intravenously at stress and Tc-99m Myoview, 10.0 mCi intravenously at res t was performed using the rest/stress sequence. Poststress Myoview SPECT images were obtained in th e supine position. COMPARISON: No prior studies. FINDINGS: Perfusion images reveal a small to moderate size moderate in degree predominantly reversible perfusi on defect in the inferior wall. Lexiscan post stress gated SPECT images demonstrate mild to moderate hypokinesis of the left ventric le. IMPRESSION: 1. The type and distribution of the scintigraphic abnormalities are most consistent with a small to moderate size predominantly reversible perfusion defect involving the inferior wall. 2. Mild to moderate hypokinesis of the left ventricle. 3. The left ventricle ejection fraction at stress is 36%. A call report was made to Dr. Chapman at 03:15 p.m. on August 28, 2016 RPTAT: QQ .Jesenia Evans MD, Date Time Electronically viewed and signed by .Jesenia Evans MD, MD on 08/28/2016 15:17 .L/
[2016-08-28] MEDS: ATORVASTATIN 40 MG TAB PO SCH (20:21)
[2016-08-28] MEDS: TAMSULOSIN (SR) 0.4 MG CAP PO SCH (20:21)
[2016-08-28] MEDS: NORTRIPTYLINE 25 MG CAP PO SCH (20:22)
[2016-08-29] VITALS (12 sets, daily range): BP systolic 114–155; BP diastolic 60–87; PULSE 71–81; RESP 17–18
[2016-08-29] MEDS: PANTOPRAZOLE (EC) 40 MG TAB PO SCH (05:59)
[2016-08-29] MEDS: LEVOTHYROXINE 75 MCG TAB PO SCH (06:00)
[2016-08-29] MEDS: AL HYDROX/MG HYDROX/SIMETH 30 ML CUP PO SCH ×4 (08:47→20:12)
[2016-08-29] MEDS: CALCIUM CARBONATE 500 MG CHEW TAB PO SCH ×4 (08:47→20:13)
[2016-08-29] MEDS: HYDROCORTISONE 2.5% 20 GM CR TOP SCH ×2 (08:47→21:16)
[2016-08-29] MEDS: POTASSIUM CHLORIDE (SR) 20 MEQ TAB PO SCH ×3 (08:48→20:13)
[2016-08-29] MEDS: BENAZEPRIL 40 MG TAB PO SCH (08:48)
[2016-08-29] MEDS: HYDROCHLOROTHIAZIDE 25 MG TAB PO SCH (08:48)
[2016-08-29] MEDS: NIFEdipine (XL) 90 MG TAB PO SCH (08:48)
[2016-08-29] MEDS: ASPIRIN 81 MG TAB PO SCH (08:48)
[2016-08-29] MEDS: METOPROLOL (XL) 50 MG TAB PO SCH (08:49)
[2016-08-29] MEDS: ENOXAPARIN 40 MG/0.4 ML SYG SC SCH (08:52)
--- NOTE | 2016-08-29 13:39 | CONS ---
Date/Time of Note Date/Time of Note DATE: 08/29/16 TIME: 13:37 Assessment/Plan Assessment/Plan Additional Assessment/Plan 1. Precordial pain - suggestive of angina. + Stress test - [facility] strongly advise - risk/benefits/alternatives explained to patient, agrees to proceed 2. HTN - con't to adjust Rx as needed 3. Abn ECG - no ST elevations noted, non-spec changes 4. Hypo K+ - replace as needed per Dr. Morgan - replaced now 5. h/o CVA - no bnew changes now, primary team follows Consultation Date/Type/Reason Admit Date/Time Aug 25, 2016 at 20:51 24 HR Interval Summary Free Text/Dictation No acute change - [facility] planned for tomorrow - will adjust rx as needed ROS: No fever, no chills, no nausea, no vomiting, no diarrhea/constipation No recent weight changes No chest pain, no PND, no orthopnea No dizziness, blurred vision No thirst, no heat or cold intolerance Exam/Review of Systems Vital Signs Vitals Vital Signs Date Time Temp Pulse Resp B/P Pulse Ox O2 Delivery O2 Flow Rate FiO2 08/29/16 12:38 73 08/29/16 11:48 98.5 17 141/75 96 08/29/16 04:00 Room Air 08/28/16 07:55 2.0 Intake and Output 08/28/16 08/28/16 08/29/16 15:00 23:00 07:00 Intake Total 950 ml 150 ml Output Total 1950 ml 350 ml Balance -1000 ml -200 ml Exam General: WN/WD/NAD, AOx 3 HEENT: Unicetric/atraumatic/EOMI (follow commands) NECK: JVD elevated, no thyromegaly Lymph: no lymphadenopathy HEART: regular with no S3, II/ systolic murmur at apex LUNGS: Coarse sounds ABD: soft, NT, ND, +BS : Intact Neuro: non focal SKIN: chronic changes EXT: trace edema Results Result Diagram: 08/25/16 1440 08/29/16 0654 Results 24 hrs Laboratory Tests Test 08/29/16 06:54 Potassium Level 3.0 L Medications Medications Current Medications Aspirin (Aspirin) 81 mg DAILY PO Last administered on 08/29/16t 08:48; Admin Dose 81 MG; Start 08/26/16 at 09:00 Atorvastatin Calcium (Lipitor) 40 mg QHS PO Last administered on 08/28/16 20: 21; Admin Dose 40 MG; Start 08/25/16 at 21:00 Benazepril HCl (Lotensin) 80 mg DAILY PO Last administered on 08/29/16 08:48; Admin Dose 80 MG; Start 08/26/16 at 09:00 Hydrochlorothiazide (Hydrochlorothiazide) 25 mg DAILY PO Last administered on 08:48; Admin Dose 25 MG; Start 08/26/16 at 09:00 Hydrocortisone (Hydrocortisone 2.5% Cr) 1 applic BID TOP Last administered on 08:47; Admin Dose 1 APPLIC; Start 08/25/16 at 21:00 Metoprolol Succinate (Toprol Xl) 50 mg DAILY PO Last administered on 08/29/16 08:49; Admin Dose 50 MG; Start 08/26/16 at 09:00 Nifedipine (Procardia Xl) 90 mg DAILY PO Last administered on 08/29/16 08:48; Admin Dose 90 MG; Start 08/26/16 at 09:00 Tamsulosin HCl (Flomax) 0.4 mg HS PO Last administered on 08/28/16 20:21; Admin Dose 0.4 MG; Start 08/25/16 at 21:00 Al Hydrox/Mg Hydrox/Simethicone (Mag-Al Plus) 30 ml QID PO Last administered on 08/29/16 08:47; Admin Dose 30 ML; Start 08/25/16 at 21:00 Calcium Carbonate (Tums) 500 mg QID PO Last administered on 08/29/16 08:47; Admin Dose 500 MG; Start 08/25/16 at 21:00 Nitroglycerin (Nitroglycerin (Sl Tab) 0.4 Mg) 1 tab Q5M PRN SL CHEST PAIN; Start 08/25/16 at 20:00 Morphine Sulfate 2 mg 2 mg Q2H PRN IV PAIN LEVEL 4-6; Start 08/25/16 at 20:00 Potassium Chloride/Sodium Chloride (NS-KCl 20 Meq) 1,000 ml @ 40 mls/hr Q24H IV Last administered on 08/27/16 23:46; Admin Dose 40 MLS/HR; Start 08/25/16 at 20:03 Ondansetron HCl (Zofran Inj) 4 mg Q6H PRN IV NAUSEA AND/OR VOMITING; Start at 20:30 Acetaminophen (Tylenol Tab) 650 mg Q6H PRN PO PAIN LEVEL 1-3 OR FEVER Last administered on 08/27/16 23:54; Admin Dose 650 MG; Start 08/25/16 at 20:30 Docusate Sodium (Colace) 100 mg Q12H PRN PO CONSTIPATION; Start 08/25/16 at 20: 30 Magnesium Hydroxide (Milk Of Mag) 30 ml DAILY PRN PO CONSTIPATION; Start at 20:30 Bisacodyl (Dulcolax) 5 mg DAILY PRN PO CONSTIPATION; Start 08/25/16 at 20:30 Enoxaparin Sodium (Lovenox) 40 mg DAILY SC Last administered on 08/29/16 08:52 ; Admin Dose 40 MG; Start 08/26/16 at 09:00 Hydralazine HCl (Apresoline) 10 mg Q6H PRN IV ELEVATED BLOOD PRESSURE Last administered on 08/25/16 23:06; Admin Dose 10 MG; Start 08/25/16 at 23:00 Potassium Chloride (Klor-Con 20) 20 meq TID PO Last administered on 08/29/16 08:48; Admin Dose 20 MEQ; Start 08/28/16 at 13:00 Pantoprazole (Protonix Tab) 40 mg DAILY@06 PO Last administered on 08/29/16 05 :59; Admin Dose 40 MG; Start 08/29/16 at 06:00 ROLY TERAN MD Aug 29, 2016 13:39
--- NOTE | 2016-08-29 14:04 | PN ---
Date/Time of Note Date/Time of Note DATE: 08/29/16 TIME: 14:03 Assessment/Plan VTE Prophylaxis VTE Prophylaxis Intervention: other Lines/Catheters IV [facility]from [facility] Urinary Cath still in place: No Assessment/Plan Chief Complaint/Hosp Course IMPRESSION: 1. Chest pain. 2. Rule out myocardial infarction. 3. Hypertension. 4. Hypokalemia. 5. Dyslipidemia. 6. Hypothyroidism by history. plan kcl will need cath Problems: Subjective 24 Hr Interval Summary Cardiovascular: no complaints Gastrointestinal: no complaints Genitourinary: no complaints Exam/Review of Systems Vital Signs Vitals Vital Signs Date Time Temp Pulse Resp B/P Pulse Ox O2 Delivery O2 Flow Rate FiO2 08/29/16 12:38 73 08/29/16 11:48 98.5 17 141/75 96 08/29/16 04:00 Room Air 08/28/16 07:55 2.0 Intake and Output 08/28/16 08/28/16 08/29/16 15:00 23:00 07:00 Intake Total 950 ml 150 ml Output Total 1950 ml 350 ml Balance -1000 ml -200 ml Exam Neck: supple Respiratory: clear to auscultation Cardiovascular: regular rate and rhythm Gastrointestinal: soft Musculoskeletal: nl extremities to inspection Extremities: normal pulses Results Result Diagram: 08/25/16 1440 08/29/16 0654 Results 24 hrs Laboratory Tests Test 08/29/16 06:54 Potassium Level 3.0 L Medications Medications Current Medications Aspirin (Aspirin) 81 mg DAILY PO Last administered on 08/29/16 08:48; Admin Dose 81 MG; Start 08/26/16 at 09:00 Atorvastatin Calcium (Lipitor) 40 mg QHS PO Last administered on 08/28/16 20: 21; Admin Dose 40 MG; Start 08/25/16 at 21:00 Benazepril HCl (Lotensin) 80 mg DAILY PO Last administered on 08/29/16 08:48; Admin Dose 80 MG; Start 08/26/16 at 09:00 Hydrochlorothiazide (Hydrochlorothiazide) 25 mg DAILY PO Last administered on 08:48; Admin Dose 25 MG; Start 08/26/16 at 09:00 Hydrocortisone (Hydrocortisone 2.5% Cr) 1 applic BID TOP Last administered on 08:47; Admin Dose 1 APPLIC; Start 08/25/16 at 21:00 Metoprolol Succinate (Toprol Xl) 50 mg DAILY PO Last administered on 08/29/16 08:49; Admin Dose 50 MG; Start 08/26/16 at 09:00 Nifedipine (Procardia Xl) 90 mg DAILY PO Last administered on 08/29/16 08:48; Admin Dose 90 MG; Start 08/26/16 at 09:00 Tamsulosin HCl (Flomax) 0.4 mg HS PO Last administered on 08/28/16 20:21; Admin Dose 0.4 MG; Start 08/25/16 at 21:00 Al Hydrox/Mg Hydrox/Simethicone (Mag-Al Plus) 30 ml QID PO Last administered on 08/29/16 08:47; Admin Dose 30 ML; Start 08/25/16 at 21:00 Calcium Carbonate (Tums) 500 mg QID PO Last administered on 08/29/16 08:47; Admin Dose 500 MG; Start 08/25/16 at 21:00 Nitroglycerin (Nitroglycerin (Sl Tab) 0.4 Mg) 1 tab Q5M PRN SL CHEST PAIN; Start 08/25/16 at 20:00 Morphine Sulfate 2 mg 2 mg Q2H PRN IV PAIN LEVEL 4-6; Start 08/25/16 at 20:00 Potassium Chloride/Sodium Chloride (NS-KCl 20 Meq) 1,000 ml @ 40 mls/hr Q24H IV Last administered on 08/27/16 23:46; Admin Dose 40 MLS/HR; Start 08/25/16 at 20:03 Ondansetron HCl (Zofran Inj) 4 mg Q6H PRN IV NAUSEA AND/OR VOMITING; Start at 20:30 Acetaminophen (Tylenol Tab) 650 mg Q6H PRN PO PAIN LEVEL 1-3 OR FEVER Last administered on 08/27/16 23:54; Admin Dose 650 MG; Start 08/25/16 at 20:30 Docusate Sodium (Colace) 100 mg Q12H PRN PO CONSTIPATION; Start 08/25/16 at 20: 30 Magnesium Hydroxide (Milk Of Mag) 30 ml DAILY PRN PO CONSTIPATION; Start at 20:30 Bisacodyl (Dulcolax) 5 mg DAILY PRN PO CONSTIPATION; Start 08/25/16 at 20:30 Enoxaparin Sodium (Lovenox) 40 mg DAILY SC Last administered on 08/29/16 08:52 ; Admin Dose 40 MG; Start 08/26/16 at 09:00 Hydralazine HCl (Apresoline) 10 mg Q6H PRN IV ELEVATED BLOOD PRESSURE Last administered on 08/25/16 23:06; Admin Dose 10 MG; Start 08/25/16 at 23:00 Potassium Chloride (Klor-Con 20) 20 meq TID PO Last administered on 08/29/16 08:48; Admin Dose 20 MEQ; Start 08/28/16 at 13:00 Pantoprazole (Protonix Tab) 40 mg DAILY@06 PO Last administered on 08/29/16 05 :59; Admin Dose 40 MG; Start 08/29/16 at 06:00 WAGNER JIMÉNEZ MD Aug 29, 2016 14:04
[2016-08-29] MEDS: NS + KCL 20 MEQ 1,000 ML IV SCH (14:14)
[2016-08-29] MEDS: ATORVASTATIN 40 MG TAB PO SCH (20:13)
[2016-08-29] MEDS: TAMSULOSIN (SR) 0.4 MG CAP PO SCH (20:13)
[2016-08-30] VITALS (29 sets, daily range): BP systolic 122–164; BP diastolic 57–100; PULSE 72–86; RESP 13–30
[2016-08-30] MEDS: PANTOPRAZOLE (EC) 40 MG TAB PO SCH (06:29)
[2016-08-30] MEDS: LEVOTHYROXINE 75 MCG TAB PO SCH (06:29)
--- NOTE | 2016-08-30 07:12 | ECORPT ---
DATE OF SERVICE: 08/28/2016 REFERRING PHYSICIAN: Dr. Morgan. REASON FOR ____: Chest pain, chest pressure. DESCRIPTION OF TEST: The patient ____ condition. Initial blood pressure was 151/85. The patient h ad successful ____ with the ____. The imaging portion of the report ____ separate. Dictated By: ROLY TERAN MD ML/LISA Conf#: [id number] DID#: [id number]
--- NOTE | 2016-08-30 07:19 | CONS ---
DATE OF ADMISSION: 08/25/2016 DATE OF CONSULTATION: 08/27/2016 CARDIOLOGY CONSULTATION REFERRING PHYSICIAN: Tavares Morgan MD REASON FOR EVALUATION: Chest pain, pressure-like sensation of the chest, and shortness of breath. HISTORY OF PRESENT ILLNESS: Mr. Saavedra is a 61-year-old gentleman with a history of hypertension, d yslipidemia, a prior history of CVA several years ago, who comes to the hospital now with a pressure -like sensation in the mid chest lasting more than 4 hours. The patient does not have elevated trop onins, but his CK-MB is slightly elevated. He has some nonspecific changes on EKG. The patient has probability of coronary artery disease. As such, I would recommend for the patient to be ris k stratified with a stress test. Initial attempt was to set up a stress test for today, but the pat ient's potassium continues to be low at 2.7. There is increased risk of arrhythmia with a low potas sium during the stress test with Lexiscan and I think it would be safer to replace potassium today i n order to perform a stress test safely tomorrow. This was discussed with Dr. Morgan, who is going t o reschedule the test for tomorrow and adjust therapy as warranted. For now, will continue conserva tive therapy. PAST MEDICAL HISTORY: 1. Hypertension. 2. Dyslipidemia. 3. History of cerebrovascular accident. 4. History of possible medical noncompliance. 5. History of dyslipidemia. ALLERGIES: NO KNOWN DRUG ALLERGIES. SOCIAL HISTORY: The patient has a history of tobacco use. He does note drink, he does not use any drugs. FAMILY HISTORY: Negative for sudden cardiac or premature coronary artery disease. There is a history of diabetes in the family. MEDICATIONS: The patient is on: 1. Potassium supplements now. 2. Aspirin 81 mg daily. 3. Benazepril 80 mg p.o. once a day. 4. Hydrochlorothiazide. 5. Metoprolol 50 mg p.o. daily. 6. Nifedipine 90 mg once a day. 7. Levothyroxine 75 mcg p.o. once a day. 8. Protonix. 9. Hydralazine. 10. Atorvastatin. REVIEW OF SYSTEMS: CONSTITUTIONAL: No fever, no chills. Shortness of breath and chest pain as described. HEENT: No changes in vision or hearing. CARDIOVASCULAR: Chest pain, as reported . RESPIRATORY: No shortness of breath. GASTROINTESTINAL: No nausea, vomiting, diarrhea or constipation. GENITOURINARY: No dysuria or hematuria . NEUROLOGIC: Nonfocal. A prior history of CVA, with left-sided weakness. PSYCHIATRIC: No known history of psychiatric illness. PHYSICAL EXAMINATION: VITAL SIGNS: Temperature is 97.9, heart rate 75, blood pressure 138/80. GENERAL: He is a thin gentleman. He is a well-nourished gentleman, in no acute distress, alert and oriented x3, aware of his condition. HEAD: Normocephalic, atraumatic. Eyes are anicteric. NECK: Supple. JVD is 7 to 8 cm. There is no lymphadenopathy or thyromegaly. HEART: Regular, with a soft holosystolic murmur at the apex. PMI is nondisplaced. I do not hear a n S3. LUNGS: Coarse at the bases. ABDOMEN: Distended, bowel sounds are present. There is no hepatosplenomegaly. GENITOURINARY: Grossly intact. EXTREMITIES: Show no evidence of clubbing, cyanosis or edema. SKIN: No discoloration. NEUROLOGICAL: He is weak on the left side, but able to move his extremities. LABORATORY DATA: White blood cell count 5.9, hemoglobin is 13.9, platelets 147. INR is 0.9. Sodiu m , potassium 2.7. His BUN is 15, creatinine is 0.8. Troponin is 0.022, but CK-MB is slightly elevated at 3.69. His LDL cholesterol is 122. ASSESSMENT AND PLAN: 1. Precordial pain. The patient's precordial pain is suggestive of ischemia. He is at least moder ate risk. I recommend inpatient risk stratification. As noted above, the stress test was scheduled initially for today, but the patient was low potassium and low potassium can precipitate a lethal a rrhythmia during Lexiscan administration and it would be safer to replace the potassium currently an d I will try to schedule the stress test for tomorrow. 2. Hypertension. Blood pressure is moderately well controlled. The patient is on a significant an tihypertensive regimen. Continue to optimize therapy. 3. History of murmur. The patient has a soft murmur, likely mitral regurgitation. [facility] 4. Hypokalemia. Continue to replace potassium now. Will adjust therapy as indicated. 5. Dyslipidemia. LDL is slightly elevated at 122. The patient is on good dose of statin. Will aw ait risk stratification with a stress test now. 6. History of cerebrovascular accident. Etiology is unclear. Will defer to the primary team for e valuation and management. I would like to thank Dr. Morgan for referring this patient for my evaluation. Dictated By: ROLY TERAN MD ML/NTS Conf#: [id number] DID#: [id number]
[2016-08-30] MEDS: ENOXAPARIN 40 MG/0.4 ML SYG SC SCH (07:48)
[2016-08-30 08:41] LABS: CREATININE 0.77 mg/dl (0.61-1.24)
[2016-08-30 08:42] LABS: CALCIUM 8.8 mg/dl (8.4-10.2)
[2016-08-30 08:53] LABS: POTASSIUM 2.8 mmol/L (3.5-5.1)
[2016-08-30] MEDS: AL HYDROX/MG HYDROX/SIMETH 30 ML CUP PO SCH ×2 (09:00→12:13)
[2016-08-30] MEDS: POTASSIUM CHLORIDE (SR) 20 MEQ TAB PO SCH ×2 (09:00→12:13)
[2016-08-30] MEDS: NIFEdipine (XL) 90 MG TAB PO SCH (09:00)
[2016-08-30] MEDS: ASPIRIN 81 MG TAB PO SCH (09:00)
[2016-08-30] MEDS: BENAZEPRIL 40 MG TAB PO SCH (09:00)
[2016-08-30] MEDS: CALCIUM CARBONATE 500 MG CHEW TAB PO SCH ×4 (09:00→21:00)
[2016-08-30] MEDS: HYDROCHLOROTHIAZIDE 25 MG TAB PO SCH (09:00)
[2016-08-30] MEDS: METOPROLOL (XL) 50 MG TAB PO SCH (09:00)
[2016-08-30] MEDS ORDERED: POTASSIUM CHLORIDE (SR) 20 MEQ TAB PO STA (09:03)
[2016-08-30] MEDS: HYDROCORTISONE 2.5% 20 GM CR TOP SCH (09:06)
--- NOTE | 2016-08-30 11:45 | CONS ---
Date/Time of Note Date/Time of Note DATE: 08/30/16 TIME: 11:39 Assessment/Plan Assessment/Plan Chief Complaint/Hosp Course IMP: 1.Chest pain 2.abnl ecg 3.HTN 4.Dyslipidemia 5. Abnl MPI-+ ischemia Recc: -Tele -serial ecg;s -Continue BB/HCTZ/CCB/ACEI -Continue statin -LHC with probable stent placement Problems: Consultation Date/Type/Reason Admit Date/Time Aug 25, 2016 at 20:51 Initial Consult Date 06/27/2016 Type of Consultation: Cardiology Reason for Consultation Chest pain Referring Provider: WAGNER JIMÉNEZ Exam/Review of Systems Vital Signs Vitals Vital Signs Date Time Temp Pulse Resp B/P Pulse Ox O2 Delivery O2 Flow Rate FiO2 08/30/16 08:18 76 08/30/16 04:00 97.8 18 122/69 97 Nasal Cannula 2.0 Intake and Output 08/29/16 08/29/16 08/30/16 15:00 23:00 07:00 Intake Total 950 ml Output Total 1125 ml 450 ml Balance -175 ml -450 ml Exam Review of Systems: CONSTITUTIONAL: No fevers, chills. PULMONARY: No sob CARDIOVASCULAR: intermittent chest pain GASTROINTESTINAL: No nausea/vomiting. GENITOURINARY: No hematuria/dysuria. MUSCULOSKELETAL: No myagias/arthalgias. PSYCHIATRIC: The patient denies depression. NEUROLOGIC: No weakness Constitutional: alert, oriented Psych: no complaints Head: normocephalic ENMT: mucosa pink and moist Neck: jvd (8-9 cm water), supple Respiratory: diminished breath sounds (at bases/B) Cardiovascular: regular rate and rhythm Gastrointestinal: non-tender, soft Musculoskeletal: muscle tone (normal) Extremities: edema (none) Neurological: other (NO focal deficits) Results Result Diagram: 08/30/16 0715 Results 24 hrs Laboratory Tests Test 08/30/16 07:15 Anion Gap 15 Blood Urea Nitrogen 14 Calcium Level 8.8 Carbon Dioxide Level 31 Chloride Level 98 Creatinine 0.77 Glucose Level 101 Potassium Level 2.8 *L Sodium Level 141 Medications Medications Current Medications Aspirin (Aspirin) 81 mg DAILY PO Last administered on 08/29/16 08:48; Admin Dose 81 MG; Start 08/26/16 at 09:00 Atorvastatin Calcium (Lipitor) 40 mg QHS PO Last administered on 08/29/16 20: 13; Admin Dose 40 MG; Start 08/25/16 at 21:00 Benazepril HCl (Lotensin) 80 mg DAILY PO Last administered on 08/29/16 08:48; Admin Dose 80 MG; Start 08/26/16 at 09:00 Hydrochlorothiazide (Hydrochlorothiazide) 25 mg DAILY PO Last administered on 08:48; Admin Dose 25 MG; Start 08/26/16 at 09:00 Hydrocortisone (Hydrocortisone 2.5% Cr) 1 applic BID TOP Last administered on 09:06; Admin Dose 1 APPLIC; Start 08/25/16 at 21:00 Metoprolol Succinate (Toprol Xl) 50 mg DAILY PO Last administered on 08/29/16 08:49; Admin Dose 50 MG; Start 08/26/16 at 09:00 Nifedipine (Procardia Xl) 90 mg DAILY PO Last administered on 08/29/16 08:48; Admin Dose 90 MG; Start 08/26/16 at 09:00 Tamsulosin HCl (Flomax) 0.4 mg HS PO Last administered on 08/29/16 20:13; Admin Dose 0.4 MG; Start 08/25/16 at 21:00 Al Hydrox/Mg Hydrox/Simethicone (Mag-Al Plus) 30 ml QID PO Last administered on 08/29/16 20:12; Admin Dose 30 ML; Start 08/25/16 at 21:00 Calcium Carbonate (Tums) 500 mg QID PO Last administered on 08/29/16 20:13; Admin Dose 500 MG; Start 08/25/16 at 21:00 Nitroglycerin (Nitroglycerin (Sl Tab) 0.4 Mg) 1 tab Q5M PRN SL CHEST PAIN; Start 08/25/16 at 20:00 Morphine Sulfate 2 mg 2 mg Q2H PRN IV PAIN LEVEL 4-6; Start 08/25/16 at 20:00 Potassium Chloride/Sodium Chloride (NS-KCl 20 Meq) 1,000 ml @ 40 mls/hr Q24H IV Last administered on 08/29/16 14:14; Admin Dose 40 MLS/HR; Start 08/25/16 at 20:03 Ondansetron HCl (Zofran Inj) 4 mg Q6H PRN IV NAUSEA AND/OR VOMITING; Start at 20:30 Acetaminophen (Tylenol Tab) 650 mg Q6H PRN PO PAIN LEVEL 1-3 OR FEVER Last administered on 08/27/16 23:54; Admin Dose 650 MG; Start 08/25/16 at 20:30 Docusate Sodium (Colace) 100 mg Q12H PRN PO CONSTIPATION; Start 08/25/16 at 20: 30 Magnesium Hydroxide (Milk Of Mag) 30 ml DAILY PRN PO CONSTIPATION; Start at 20:30 Bisacodyl (Dulcolax) 5 mg DAILY PRN PO CONSTIPATION; Start 08/25/16 at 20:30 Enoxaparin Sodium (Lovenox) 40 mg DAILY SC Last administered on 08/29/16 08:52 ; Admin Dose 40 MG; Start 08/26/16 at 09:00 Hydralazine HCl (Apresoline) 10 mg Q6H PRN IV ELEVATED BLOOD PRESSURE Last administered on 08/25/16 23:06; Admin Dose 10 MG; Start 08/25/16 at 23:00 Potassium Chloride (Klor-Con 20) 20 meq TID PO Last administered on 08/29/16 20:13; Admin Dose 20 MEQ; Start 08/28/16 at 13:00 Pantoprazole (Protonix Tab) 40 mg DAILY@06 PO Last administered on 08/30/16 06 :29; Admin Dose 40 MG; Start 08/29/16 at 06:00 JANES VILLAR Aug 30, 2016 11:45
[2016-08-30] MEDS ORDERED: NITROGLYCERIN (IC) 100 MCG/ML INJ ONE (13:46)
[2016-08-30] MEDS ORDERED: MIDAZOLAM 1 MG/ML 2 ML INJ ONE (13:46)
[2016-08-30] MEDS ORDERED: FENTAnyl 50 MCG/ML VIAL ONE (13:46)
[2016-08-30] MEDS ORDERED: HEPARIN 1000 UNITS/ML 10 ML INJ ONE (13:46)
[2016-08-30] MEDS ORDERED: VERAPAMIL 5 MG INJ ONE (13:46)
[2016-08-30] MEDS ORDERED: IOHEXOL 350MG/ML 50 ML BTL ONE (14:35)
[2016-08-30] MEDS ORDERED: IODIXANOL LOCM 100 ML BTL ONE ×2 (14:35→14:37)
[2016-08-30] MEDS ORDERED: ASPIRIN 325 MG TAB ONE (14:49)
[2016-08-30] MEDS ORDERED: CLOPIDOGREL 300 MG TAB ONE (14:49)
[2016-08-30] MEDS ORDERED: SOD CHLORIDE 0.9% 1,000 ML IV SCH (14:50)
[2016-08-30] MEDS ORDERED: ONDANSETRON 4 MG INJ IV PRN (15:00)
[2016-08-30] MEDS ORDERED: ACETAMINOPHEN 325 MG TAB PO PRN (15:00)
[2016-08-30] MEDS ORDERED: OXYCODONE/ACETAMINOPHEN (5/325) TAB PO PRN (15:00)
[2016-08-30] MEDS ORDERED: AL HYDROX/MG HYDROX/SIMETH 30 ML CUP PO PRN (15:00)
[2016-08-30] MEDS ORDERED: ZOLPIDEM 5 MG TAB PO PRN (15:00)
[2016-08-30] MEDS ORDERED: morphine 2 MG INJ IV PRN (15:00)
--- NOTE | 2016-08-30 15:35 | PN ---
Date/Time of Note Date/Time of Note DATE: 08/30/16 TIME: 15:34 Assessment/Plan VTE Prophylaxis VTE Prophylaxis Intervention: other Lines/Catheters IV [facility] Peripheral IV Urinary Cath still in place: No Assessment/Plan Chief Complaint/Hosp Course IMPRESSION: 1. Chest pain. 2. Rule out myocardial infarction. 3. Hypertension. 4. Hypokalemia. 5. Dyslipidemia. 6. Hypothyroidism by history. plan kcl will need cath kcl dc hctz Problems: Subjective 24 Hr Interval Summary Constitutional: no complaints ENT: no complaints Exam/Review of Systems Vital Signs Vitals Vital Signs Date Time Temp Pulse Resp B/P Pulse Ox O2 Delivery O2 Flow Rate FiO2 08/30/16 15:15 98.0 78 19 142/100 96 Room Air 08/30/16 04:00 2.0 Intake and Output 08/29/16 08/29/16 08/30/16 15:00 23:00 07:00 Intake Total 950 ml Output Total 1125 ml 450 ml Balance -175 ml -450 ml Exam Neck: supple Respiratory: clear to auscultation Cardiovascular: regular rate and rhythm Gastrointestinal: soft Results Result Diagram: 08/30/16 0715 Results 24 hrs Laboratory Tests Test 08/30/16 07:15 Anion Gap 15 Blood Urea Nitrogen 14 Calcium Level 8.8 Carbon Dioxide Level 31 Chloride Level 98 Creatinine 0.77 Glucose Level 101 Potassium Level 2.8 *L Sodium Level 141 Medications Medications Current Medications Atorvastatin Calcium (Lipitor) 40 mg QHS PO Last administered on 08/29/16 20: 13; Admin Dose 40 MG; Start 08/25/16 at 21:00 Benazepril HCl (Lotensin) 80 mg DAILY PO Last administered on 08/29/16 08:48; Admin Dose 80 MG; Start 08/26/16 at 09:00 Hydrochlorothiazide (Hydrochlorothiazide) 25 mg DAILY PO Last administered on 08:48; Admin Dose 25 MG; Start 08/26/16 at 09:00 Hydrocortisone (Hydrocortisone 2.5% Cr) 1 applic BID TOP Last administered on 09:06; Admin Dose 1 APPLIC; Start 08/25/16 at 21:00 Metoprolol Succinate (Toprol Xl) 50 mg DAILY PO Last administered on 08/29/16 08:49; Admin Dose 50 MG; Start 08/26/16 at 09:00 Nifedipine (Procardia Xl) 90 mg DAILY PO Last administered on 08/29/16 08:48; Admin Dose 90 MG; Start 08/26/16 at 09:00 Tamsulosin HCl (Flomax) 0.4 mg HS PO Last administered on 08/29/16 20:13; Admin Dose 0.4 MG; Start 08/25/16 at 21:00 Calcium Carbonate (Tums) 500 mg QID PO Last administered on 08/29/16 20:13; Admin Dose 500 MG; Start 08/25/16 at 21:00 Nitroglycerin 1 tab 1 tab Q5M PRN SL CHEST PAIN; Start 08/25/16 at 20:00 Potassium Chloride/Sodium Chloride (NS-KCl 20 Meq) 1,000 ml @ 40 mls/hr Q24H IV Last administered on 08/29/16 14:14; Admin Dose 40 MLS/HR; Start 08/25/16 at 20:03 Docusate Sodium (Colace) 100 mg Q12H PRN PO CONSTIPATION; Start 08/25/16 at 20: 30 Magnesium Hydroxide (Milk Of Mag) 30 ml DAILY PRN PO CONSTIPATION; Start at 20:30 Bisacodyl (Dulcolax) 5 mg DAILY PRN PO CONSTIPATION; Start 08/25/16 at 20:30 Enoxaparin Sodium (Lovenox) 40 mg DAILY SC Last administered on 08/29/16 08:52 ; Admin Dose 40 MG; Start 08/26/16 at 09:00 Hydralazine HCl (Apresoline) 10 mg Q6H PRN IV ELEVATED BLOOD PRESSURE Last administered on 08/25/16 23:06; Admin Dose 10 MG; Start 08/25/16 at 23:00 Potassium Chloride (Klor-Con 20) 20 meq TID PO Last administered on 08/29/16 20:13; Admin Dose 20 MEQ; Start 08/28/16 at 13:00 Pantoprazole (Protonix Tab) 40 mg DAILY@06 PO Last administered on 08/30/16 06 :29; Admin Dose 40 MG; Start 08/29/16 at 06:00 Aspirin (Ecotrin) 325 mg DAILY PO ; Start 08/31/16 at 09:00 Clopidogrel Bisulfate (plaVIX) 75 mg DAILY PO ; Start 08/31/16 at 09:00 Acetaminophen (Tylenol Tab) 650 mg Q4H PRN PO NON-CARDIAC PAIN LEVEL 1-3; Start 08/30/16 at 15:00 Oxycodone/ Acetaminophen (Percocet (5/ 325)) 1 tab Q4H PRN PO REPORTED NON- CARDIAC PAIN 4-7; Start 08/30/16 at 15:00 Morphine Sulfate (morphine) 1 mg Q1H PRN IV PAIN NOT RELIEVED BY OTHERS; Start 08/30/16 at 15:00 Al Hydrox/Mg Hydrox/Simethicone (Mag-Al Plus) 30 ml Q4H PRN PO GASTROINTESTINAL UPSET; Start 08/30/16 at 15:00 Ondansetron HCl 4 mg 4 mg Q4H PRN IV NAUSEA AND/OR VOMITING; Start 08/30/16 at 15:00 Sodium Chloride (NS) 1,000 ml @ 75 mls/hr [id number] IV ; Start 08/30/16 at 14:50 ; Stop 08/31/16 at 04:09 WAGNER JIMÉNEZ MD Aug 30, 2016 15:35
[2016-08-30 16:37] LABS: POTASSIUM 3.9 mmol/L (3.5-5.1)
[2016-08-30 16:40] LABS: CREATININE 0.81 mg/dl (0.61-1.24)
[2016-08-30 16:41] LABS: CALCIUM 9.2 mg/dl (8.4-10.2)
--- NOTE | 2016-08-30 18:41 | RADRPT ---
PROCEDURE: Retroperitoneal US. CLINICAL INDICATION: hypokalemia TECHNIQUE: Multiple sonographic images of the retroperitoneum were obtained. The images were revi ewed on a PACS workstation. COMPARISON: No prior studies are available for comparison. FINDINGS: The right kidney measures 12.5 cm. The left kidney measures 12.6 cm. The renal parenchymal echotexture is mildly increased bilaterally. There is no hydronephrosis. 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 Foci of vascular flow noted within it. The bladder is grossly unremarkable. 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 An MR study without and with contrast is recommended for further evalu ation. Bilateral kidneys demonstrate mildly increased renal parenchymal echogenicity without significant at rophy, as above. Findings are equivocal for medical renal disease. Correlation with BUN and creatin ine levels is recommended. RPTAT: EE Physician Casey Date Time Electronically viewed and signed by Physician Casey on 08/30/2016 18:40 RA/
[2016-08-30] MEDS: ATORVASTATIN 40 MG TAB PO SCH (20:21)
[2016-08-30] MEDS: TAMSULOSIN (SR) 0.4 MG CAP PO SCH (20:21)
[2016-08-30] MEDS: POTASSIUM CHLORIDE (SR) 10 MEQ TAB PO SCH (20:21)
[2016-08-30] MEDS: NS + KCL 20 MEQ 1,000 ML IV SCH (20:58)
[2016-08-31] VITALS (22 sets, daily range): BP systolic 132–170; BP diastolic 63–101; PULSE 77–88; RESP 12–23
[2016-08-31 01:26] LABS: ADD UMIC NO; URINE BILIRUBIN (Dip) NEGATIVE (NEGATIVE); URINE BLOOD (Dip) NEGATIVE (NEGATIVE); URINE COLOR LT. YELLOW (YELLOW); URINE GLUCOSE (Dip) NEGATIVE (NEGATIVE); URINE KETONES (Dip) NEGATIVE (NEGATIVE); URINE LEUKOCYTE ESTERASE (Dip) NEGATIVE (NEGATIVE); URINE NITRITE (Dip) NEGATIVE (NEGATIVE); URINE TOTAL PROTEIN (Dip) NEGATIVE (NEGATIVE); URINE UROBILINOGEN (Dip) 0.2 E.U./dL (0.1-1.0)
[2016-08-31] MEDS: hydrALAzine 20 MG INJ IV PRN (06:10)
[2016-08-31] MEDS: LEVOTHYROXINE 75 MCG TAB PO SCH (06:10)
[2016-08-31] MEDS: PANTOPRAZOLE (EC) 40 MG TAB PO SCH (06:10)
[2016-08-31 06:43] LABS: CREATININE 0.75 mg/dl (0.61-1.24)
[2016-08-31 06:44] LABS: CALCIUM 8.5 mg/dl (8.4-10.2)
--- NOTE | 2016-08-31 07:29 | CARRPT ---
DATE OF PROCEDURE: 08/30/2016 TYPE OF PROCEDURES: 1. Left heart catheterization. 2. Coronary angiography. 3. Percutaneous transluminal coronary angioplasty with placement of drug-eluting stents x2 to circu mflex. 4. PTCA of chronic total occlusion of circumflex. ATTENDING PHYSICIAN: Janes Lucio MD REFERRING PHYSICIAN: Tavares Morgan MD INDICATION: Chest pain consistent with angina with positive stress test findings for ischemia. BRIEF HISTORY AND HOSPITAL COURSE: Mr. Saavedra is a 61-year-old male with history of hypertension, d yslipidemia who initially had complaints of substernal chest pain and subsequently underwent a cardi ac stress test revealing positive ischemia. The patient was placed on ____ medical therapy, continu ed to have chest pain, was brought to cardiac dental laboratory technician in order to assess for the possibility of sig nificant obstructive coronary artery disease lending to his symptoms of chest pain and subsequent po sitive stress test. PROCEDURE: After informed consent was obtained, the patient was brought to the [facility] cardiac catheterization lab, where his right radial area was prepped and draped in usual st erile fashion. Lidocaine 2% was infiltrated to the right radial area in order to achieve adequate a nesthesia. Using modified Seldinger technique, the radial artery was cannulated, and a 6-Montenegrin art erial sheath was placed. A 6-Mont[place]grin JL3.5 catheter was used to cannulate the left main coronary ost ium. With contrast injection, multiple views of left coronary arterial system were obtained. A JL3 .5 ____ guidewire and a JR4 was used to cannulate the right coronary arterial ostium. With contrast injection, multiple views of the right coronary arterial system were obtained. A JR4 was then used to cross the LV. Left ventricular end-diastolic pressure was measured, pulled back across the aort ic valve, assessed for significant gradient, which there was not, and removed. At this time, given the findings of significant obstructive disease in circumflex vessel, we moved directly into an inte rventional procedure. The patient was given an additional 1000 units of heparin in order to achieve ____. The patient had a ____ guide, 6-Montenegrin used to cannulate the left main coronary ostium. A 0 .014 Patented Hogshead [employer]er ____ guidewire was passed distal into the obtuse marginal, and there was 100% occlusion i n the circ continuation AV groove. A Patented Hogshead Assembler 200 was used to successfully cross this fibrous ____, pl acing it distal in the vessel. Subsequently, at this time the patient had balloon inflations done t hroughout the proximal portion of the chronic total occlusion in the circ continuation AV groove wit h a 1.5 x 8 mm balloon up to 14 to 16 atmospheres. Balloon was removed, and a 2.25 x 12 mm balloon was used to perform further predilations throughout the proximal portions of the vessel and into the area just above this, where it is noted tight blockage before the bifurcation of obtuse marginal. Subsequently this balloon was removed, and a 2.25 x 30 mm drug-eluting stent was then passed into th e circ continuation AV groove and deployed at 14 atmospheres, post dilated stent delivery system up to 16 atmospheres. Stent delivery system was removed, and now a second stent 2.25 x 12 mm was overl apped with this by 1 mm and used to get the proximal lesion, and it was deployed at 14 atmospheres, post dilated with stent delivery system up to 14 atmospheres. The stent delivery balloon was then p assed forward, and post dilatations were made up to 14 atmospheres. The balloon was removed. [facility] angiogram was obtained revealing excellent result with deployment of both stents, FILI 3 flow th roughout the vessel and no signs of complication including perforation or dissection. Subsequently, at this time the patient's interventional guide and guidewires were removed. The patient's sheath was removed. TR band was applied. This completed procedure. The patient was given 600 mg of p.o. Plavix, 325 mg of aspirin. There were no noted complications. The patient was given 600 mg of p.o. Plavix and 325 mg aspirin at the completion of this procedure. FINDINGS: 1. Coronary angiography. The left main proximally is a 4.5 mm vessel, has no significant stenoses. Circumflex proximally is a 3 mm vessel and after bifurcation of an obtuse marginal has an 80% sten osis. Near to that, there is a reasonable-sized obtuse marginal, and the circ continuation AV groov e is 100% occluded. The LAD proximally is a 3.5 mm vessel and in its midportion has a 50% stenosis. The remainder of the circumflex thereafter is free of significant focal stenoses. There are 2 pro ximal branching diagonals, each 2 mm vessels with the more superior branch having a 20% to 30% steno sis. The right coronary artery proximally is a 3 mm vessel and just at the bifurcation with the PDA posterolateral branch has a 20% to 30% stenosis, and then the ostial portion of the posterolateral branch has a 60% to 70% stenosis. Measurement of left ventricular end-diastolic pressure ____. No significant aortic stenosis by gradient. 2. PTCA and stent placement. Prior to PTCA and stent placement, the patient had an 80% stenosis fo llowed by a 100% occlusion. Post PTCA and stent placement, the patient had no residual stenosis, TI DC 3 flow throughout the vessel and no signs of complication including perforation or dissection. TOTAL FLUOROSCOPY TIME: 16.5 minutes. TOTAL CONTRAST: 180 mL IMPRESSION: 1. 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 2. Successful percutaneous transluminal coronary angioplasty and stent placement to mid circumflex with drug-eluting stent 2.25 x 12 mm. 3. Intermediate lesion in posterolateral branch, unclear significance. 4. Elevated left heart filling pressure. 5. No significant aortic stenosis by gradient. RECOMMENDATIONS: In light of procedure and findings, at this time would: 1. Maintain the patient on aspirin 325 mg one tablet p.o. daily. 2. Plavix 75 mg 1 tablet p.o. daily for at least 1 year. 3. Maximize medical management. 4. Aggressive risk factor reduction. 5. The patient admitted to the ICU for post-interventional observation, continued management of sym ptoms. Dictated By: JANES MILLER/LISA Conf#: [id number] DID#: [id number]
[2016-08-31] MEDS: METOPROLOL (XL) 50 MG TAB PO SCH (08:37)
[2016-08-31] MEDS: POTASSIUM CHLORIDE (SR) 10 MEQ TAB PO SCH ×2 (08:38→14:00)
[2016-08-31] MEDS: BENAZEPRIL 40 MG TAB PO SCH (08:39)
[2016-08-31] MEDS: CALCIUM CARBONATE 500 MG CHEW TAB PO SCH ×2 (08:39→14:00)
[2016-08-31] MEDS: NIFEdipine (XL) 90 MG TAB PO SCH (08:39)
[2016-08-31] MEDS: ENOXAPARIN 40 MG/0.4 ML SYG SC SCH (08:51)
[2016-08-31] MEDS ORDERED: CLOPIDOGREL 75 MG TAB PO SCH (09:00)
[2016-08-31] MEDS ORDERED: ASPIRIN (EC) 325 MG TAB PO SCH (09:00)
[2016-08-31 09:40] LABS: BASOPHILS % 0.5 % (0.0-2.0); EOSINOPHILS # 0.2 10^3/ul (0.0-0.5); HEMATOCRIT 39.4 % (42.0-52.0); HEMOGLOBIN 13.1 g/dl (14.0-18.0); LYMPHOCYTES # 1.3 10^3/ul (0.8-2.9); LYMPHOCYTES % 27.4 % (15.0-51.0); MEAN CORPUSCULAR HGB CONC 33.2 g/dl (32.0-37.0); MEAN CORPUSCULAR VOLUME 93.1 fl (82.0-101.0); MEAN PLATELET VOLUME 12.9 fl (7.4-10.4); MONOCYTE # 0.6 10^3/ul (0.3-0.9); MONOCYTES % 11.7 % (0.0-11.0); NEUTROPHIL # 2.7 10^3/ul (1.6-7.5); NEUTROPHILS % 56.4 % (39.0-77.0); PLATELET COUNT 157 10^3/UL (140-440); RED BLOOD COUNT 4.23 10^6/ul (4.70-6.10); RED CELL DISTRIBUTION WIDTH 13.3 % (11.5-14.5); UNCORRECTED WBC 4.9 10^3/ul (4.8-10.8); WHITE BLOOD COUNT 4.9 10^3/ul (4.8-10.8)
[2016-08-31 09:44] LABS: CONDITION 1
--- NOTE | 2016-08-31 14:33 | CONS ---
Date/Time of Note Date/Time of Note DATE: 08/31/16 TIME: 14:31 Assessment/Plan Assessment/Plan Chief Complaint/Hosp Course IMP: 1.Chest pain 2.abnl ecg 3.HTN 4.Dyslipidemia 5. Abnl MPI-+ ischemia now POD#1 s/p PTCA/stent x 2 to LCX. Has intermediate stenosis of PLB of undetermined significance Recc: -Tele -serial ecg;s -Continue BB/HCTZ/CCB/ACEI -Continue statin -Continue asa/plavix -outpatient f/u 2 weeks Problems: Consultation Date/Type/Reason Admit Date/Time Aug 25, 2016 at 20:51 Initial Consult Date 06/27/2016 Type of Consultation: Cardiology Reason for Consultation chest pain Referring Provider: WAGNER JIMÉNEZ MD Exam/Review of Systems Vital Signs Vitals Vital Signs Date Time Temp Pulse Resp B/P Pulse Ox O2 Delivery O2 Flow Rate FiO2 08/31/16 12:00 81 08/31/16 12:00 14 146/79 98 Room Air 08/31/16 08:00 98.3 08/30/16 04:00 2.0 Intake and Output 08/30/16 08/30/16 08/31/16 15:00 23:00 07:00 Intake Total 520 ml 1080 ml Output Total 1050 ml 1600 ml Balance -530 ml -520 ml Exam Review of Systems: CONSTITUTIONAL: No fevers, chills. PULMONARY: No sob CARDIOVASCULAR: No chest pain/palpitations GASTROINTESTINAL: No nausea/vomiting. GENITOURINARY: No hematuria/dysuria. MUSCULOSKELETAL: No myagias/arthalgias. PSYCHIATRIC: The patient denies depression. NEUROLOGIC: No weakness Constitutional: alert, oriented Psych: no complaints Head: normocephalic ENMT: mucosa pink and moist Neck: jvd (9 cm water), supple Respiratory: diminished breath sounds (at bases/B) Cardiovascular: regular rate and rhythm Gastrointestinal: non-tender, soft Musculoskeletal: muscle tone (normal) Extremities: edema (none) Neurological: other (No focal deficits) Results Result Diagram: 08/31/16 0554 08/31/16 0554 Results 24 hrs Laboratory Tests Test 08/30/16 16:15 08/31/16 01:15 08/31/16 05:54 Anion Gap 17 H 14 Blood Urea Nitrogen 12 11 Calcium Level 9.2 8.5 Carbon Dioxide Level 31 28 Chloride Level 100 104 Creatinine 0.81 0.75 Glucose Level 85 95 Potassium Level 3.9 3.0 L Sodium Level 144 143 Urine Bilirubin NEGATIVE Urine Clarity CLEAR Urine Color LT. YELLOW Urine Glucose NEGATIVE Urine Hemoglobin NEGATIVE Urine Ketones NEGATIVE Urine Leukocyte Esterase NEGATIVE Urine Nitrite NEGATIVE Urine Random Sodium 44 Urine Specific [place] 1.010 Urine Total Protein NEGATIVE Urine Urobilinogen 0.2 E.U./dL Urine pH 7.5 Basophils # 0.0 Basophils % 0.5 Blood Morphology Comment Eosinophils # 0.2 Eosinophils % 4.0 Hematocrit 39.4 L Hemoglobin 13.1 L Lymphocytes # 1.3 Lymphocytes % 27.4 Mean Corpuscular Hemoglobin 31.0 Mean Corpuscular Hemoglobin Concent 33.2 Mean Corpuscular Volume 93.1 Mean Platelet Volume 12.9 H Monocytes # 0.6 Monocytes % 11.7 H Neutrophils # 2.7 Neutrophils % 56.4 Nucleated Red Blood Cells # 0.0 Nucleated Red Blood Cells % 0.0 Platelet Count 157 Red Blood Count 4.23 L Red Cell Distribution Width 13.3 White Blood Count 4.9 Medications Medications Current Medications Atorvastatin Calcium (Lipitor) 40 mg QHS PO Last administered on 08/30/16 20: 21; Admin Dose 40 MG; Start 08/25/16 at 21:00 Benazepril HCl (Lotensin) 80 mg DAILY PO Last administered on 08/31/16 08:39; Admin Dose 80 MG; Start 08/26/16 at 09:00 Metoprolol Succinate (Toprol Xl) 50 mg DAILY PO Last administered on 08/31/16 08:37; Admin Dose 50 MG; Start 08/26/16 at 09:00 Nifedipine (Procardia Xl) 90 mg DAILY PO Last administered on 08/31/16 08:39; Admin Dose 90 MG; Start 08/26/16 at 09:00 Tamsulosin HCl (Flomax) 0.4 mg HS PO Last administered on 08/30/16 20:21; Admin Dose 0.4 MG; Start 08/25/16 at 21:00 Calcium Carbonate (Tums) 500 mg QID PO Last administered on 08/31/16 08:39; Admin Dose 500 MG; Start 08/25/16 at 21:00 Nitroglycerin 1 tab 1 tab Q5M PRN SL CHEST PAIN; Start 08/25/16 at 20:00 Potassium Chloride/Sodium Chloride (NS-KCl 20 Meq) 1,000 ml @ 40 mls/hr Q24H IV Last administered on 08/30/16 20:58; Admin Dose 40 MLS/HR; Start 08/25/16 at 20:03 Docusate Sodium (Colace) 100 mg Q12H PRN PO CONSTIPATION; Start 08/25/16 at 20: 30 Magnesium Hydroxide (Milk Of Mag) 30 ml DAILY PRN PO CONSTIPATION; Start at 20:30 Bisacodyl (Dulcolax) 5 mg DAILY PRN PO CONSTIPATION; Start 08/25/16 at 20:30 Enoxaparin Sodium (Lovenox) 40 mg DAILY SC Last administered on 08/31/16 08:51 ; Admin Dose 40 MG; Start 08/26/16 at 09:00 Hydralazine HCl (Apresoline) 10 mg Q6H PRN IV ELEVATED BLOOD PRESSURE Last administered on 08/31/16 06:10; Admin Dose 10 MG; Start 08/25/16 at 23:00 Pantoprazole (Protonix Tab) 40 mg DAILY@06 PO Last administered on 08/31/16 06 :10; Admin Dose 40 MG; Start 08/29/16 at 06:00 Aspirin (Ecotrin) 325 mg DAILY PO Last administered on 08/31/16 08:37; Admin Dose 325 MG; Start 08/31/16 at 09:00 Clopidogrel Bisulfate (plaVIX) 75 mg DAILY PO Last administered on 08/31/16 08 :36; Admin Dose 75 MG; Start 08/31/16 at 09:00 Acetaminophen (Tylenol Tab) 650 mg Q4H PRN PO NON-CARDIAC PAIN LEVEL 1-3 Last administered on 08/31/16 04:10; Admin Dose 650 MG; Start 08/30/16 at 15:00 Oxycodone/ Acetaminophen (Percocet (5/ 325)) 1 tab Q4H PRN PO REPORTED NON- CARDIAC PAIN 4-7; Start 08/30/16 at 15:00 Morphine Sulfate (morphine) 1 mg Q1H PRN IV PAIN NOT RELIEVED BY OTHERS; Start 08/30/16 at 15:00 Al Hydrox/Mg Hydrox/Simethicone (Mag-Al Plus) 30 ml Q4H PRN PO GASTROINTESTINAL UPSET; Start 08/30/16 at 15:00 Ondansetron HCl (Zofran Inj) 4 mg Q4H PRN IV NAUSEA AND/OR VOMITING; Start at 15:00 Potassium Chloride (Klor-Con 10) 30 meq TID PO Last administered on 08/31/16 08:38; Admin Dose 30 MEQ; Start 08/30/16 at 21:00 JANES VILLAR Aug 31, 2016 14:33
--- NOTE | 2016-08-31 15:41 | PDOCDIS ---
Discharge Instructions CONDITION Patient Condition: Good HOME CARE INSTRUCTIONS: Diet Instructions: Low Fat /Cholesterol ACTIVITY: Activity Restrictions: Slowly Increase Activity FOLLOW UP/APPOINTMENTS Appointments f/u own pcp [address] armas 1 wk [facility] kidney out pt by pcp k level ck by pcp 2 days WAGNER JIMÉNEZ MD Aug 31, 2016 15:40
[2016-08-31] MEDS ORDERED: POTA10TA15 PO (15:43)
[2016-08-31] MEDS ORDERED: CLOP75TA28 PO (15:43)
[2016-08-31] MEDS ORDERED: ASPI325T32 PO (15:43)
[2016-08-31] MEDS ORDERED: NIT4 SL (15:43)
[2016-08-31] MEDS ORDERED: POTASSIUM CHLORIDE (SR) 10 MEQ TAB PO ONE (16:00)
--- NOTE | 2016-08-31 22:00 | QN ---
Documentation Comment [id number] WAGNER JIMÉNEZ MD Aug 31, 2016 22:00
--- NOTE | 2016-09-01 00:58 | DS ---
DATE OF ADMISSION: 08/25/2016 DATE OF DISCHARGE: 08/31/2016 HISTORY OF PRESENT ILLNESS: A 61-year-old male who was admitted with a diagnosis of chest pain and hypertension, noted to have dyslipidemia and hypokalemia. The patient also has hypothyroidism, is o n a diuretic at home. The patient was seen by Dr. Chapman in consultation. A 2D echo done shows pat cherrint has ejection fraction 45%, mild mitral leaflet calcification, trileaflet aortic valve, normal a ppearance and function of the tricuspid valve. The patient underwent coronary angiogram by Dr. Maitas ins. The patient had left heart cath, coronary angiography, percutaneous transluminal coronary winnie oplasty with placement of drug-eluting stents x2 to circumflex and the patient also received potassi um supplementation. The patient had a Lexiscan done that shows ejection fraction 36%, but patient _ ___. The patient also has dyslipidemia. Lexiscan was positive for reversible defect. The patient is discharged. DIAGNOSES: Include: 1. Acute coronary syndrome. 2. Decreased ejection fraction. 3. Dyslipidemia. 4. Hypertension. 5. Hypokalemia, drug induced, possibly. 6. ____. 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 The patient ____ status post cardiac cath, ang ioplasty and stent placement. DISCHARGE MEDICATIONS: 1. Aspirin. 2. Plavix. 3. Nitroglycerin. 4. Potassium. 5. Lipitor. 6. Benazepril. 7. Levothyroxine. 8. Metoprolol. 9. Naproxen. 10. Nifedipine. 11. ____. 12. Flomax. FOLLOWUP: Patient to follow with primary care doctor and Dr. Lucio as an outpatient. DIET: Low salt, cardiac diet. Dictated By: WAGNER JIMÉNEZ MD BS/NTS Conf#: [id number] DID#: [id number]
--- NOTE | 2016-09-01 09:25 | RADRPT ---
Vent Rate: 77 bpm RR Interval: 0 msec NE Interval: 198 msec QRS Duration: 98 msec QT Interval: 414 msec QTC Interval: 468 msec P-R-T [place]: 58 - 28 - 62 degrees Normal sinus rhythm Possible Left atrial enlargement Nonspecific T wave abnormality Prolonged QT Abnormal ECG Electronically Signed By: Mikey Garces [id number]
--- NOTE | 2016-09-01 09:27 | RADRPT ---
Vent Rate: 80 bpm RR Interval: 0 msec [place] Interval: 194 msec QRS Duration: 112 msec QT Interval: 436 msec QTC Interval: 502 msec P-R-T [place]: 50 - 16 - 76 degrees Sinus rhythm with occasional premature ventricular complexes Possible Left atrial enlargement T wave abnormality, consider lateral ischemia Prolonged QT Abnormal ECG Electronically Signed By: Mikey Garces [id number]
== END 2016-08-31 16:45 | disposition home or self-care (01) | DRG 247 ==
LOC: E/R 14:02 → MS4 20:51 → ICU 08-30 18:40
PROVIDERS: ADMIT Internal Medicine Nephrology; ATTEND Internal Medicine Nephrology
PROC: 027035Z Dilation of Coronary Artery, One Artery with Two Drug-eluting Intraluminal Devices, Percutaneous Approach (ICD-10-PCS; principal; 2016-08-25)
PROC: B2111ZZ Fluoroscopy of Multiple Coronary Arteries using Low Osmolar Contrast (ICD-10-PCS; 2016-08-30)
PROC: 4A023N7 Measurement of Cardiac Sampling and Pressure, Left Heart, Percutaneous Approach (ICD-10-PCS; 2016-08-30 13:00)
DX: I24.9 Acute ischemic heart disease, unspecified (principal); I25.82 Chronic total occlusion of coronary artery; I25.10 Atherosclerotic heart disease of native coronary artery without angina pectoris; I10 Essential (primary) hypertension; R07.2 Precordial pain; R07.9 Chest pain, unspecified; E03.9 Hypothyroidism, unspecified; E87.6 Hypokalemia; E78.5 Hyperlipidemia, unspecified; Z66 Do not resuscitate; Z79.82 Long term (current) use of aspirin; Z86.73 Personal history of transient ischemic attack (TIA), and cerebral infarction without residual deficits
CPT/HCPCS: 36415; 71010; 76775; 78452; 80048; 80061; 81003; 82550; 82553; 84132; 84300; 84484; 85025; 85610; 85730; 90686; 93005; 93017; 93306; 93458; 96374; A9500; A9505; C9113; J0360; J1644; J1650; J2250; J2785; J3010; J3480; J7030; Q9967

== ENCOUNTER 2018-06-07 10:07 | Inpatient (IN) | END 2018-06-09 17:45 | disposition home or self-care (01) | DRG 292 ==

== ENCOUNTER 2018-10-20 10:30 | Emergency (ER) | payer OTHER ==
[~2018-10-20] VITALS: Ht 198.1 cm; Wt 94.0 kg
[~2018-10-20 10:30] MED LIST changes: +ASPI81TA52 PO; +ATOR-2 PO; +BENA40TA56 PO; -BENAZEPRIL; +FURO20TA3 PO; +LEVO100T82 PO; +NIFE90TA11 PO; +OMEP20CA16 PO; -PAIN MED; +POTASSIUM CHLORIDE PO; +TAMS-14 PO; -[UNRECOGNIZED DRUG - OTHER]
[2018-10-20 10:33] VITALS: Ht 198.1 cm; Wt 94.0 kg
[2018-10-20] MEDS ORDERED: ASPIRIN 325 MG TAB PO STA (11:10)
[2018-10-20] MEDS ORDERED: SOD CHLORIDE 0.9% 1,000 ML IV STA (11:10)
--- NOTE | 2018-10-20 11:35 | ERD ---
ER Documentation Chief Complaint Chief Complaint pt sean family from [facility], had stroke on 09/02/18 in [place], still weak HPI This is 63-year-old male who just arrived in [place] last night from the [facility]. The patient states that one month ago he woke with right sided face arm and leg weakness, it has remained that way and has not gotten worse or better. Is also having a difficult time talking with mild slurred speech is gotten no worse or no better. He states that he is here for evaluation for these right- sided symptoms because he refused to go to the hospital in [facility] as he states is very risky. No headache loss of bowel or bladder ROS All systems reviewed and are negative except as per history of present illness. Medications Home Meds Active Scripts Atorvastatin* (Atorvastatin*) 40 Mg Tablet, 40 MG PO QHS, #30 TAB Prov:LUIS GOODSON DO 10/20/18 Aspirin* (Aspirin* EC) 81 Mg Tablet., 81 MG PO DAILY, #120 TAB Prov:LUIS GOODSON DO 10/20/18 Reported Medications Aspirin (Low Dose Aspirin) 81 Mg Tablet.dr, 81 MG PO DAILY, #30 TAB 06/07/18 Tamsulosin Hcl* (Flomax*) 0.4 Mg Cap.er.24h, 0.4 MG PO DAILY, CAP 06/07/18 Nifedipine* (Nifedipine ER*) 90 Mg Tablet.er, 90 MG PO DAILY, TAB 06/07/18 Levothyroxine Sodium* (Levoxyl*) 100 Mcg Tablet, 100 MCG PO BEFORE BREAKFAST, #30 TAB 06/07/18 Benazepril Hcl* (Benazepril Hcl*) 40 Mg Tablet, 80 MG PO DAILY, #30 TAB 06/07/18 Atorvastatin* (Atorvastatin*) 80 Mg Tablet, 80 MG PO QHS, #30 TAB 06/07/18 Discontinued Reported Medications Omeprazole* (Omeprazole*) 20 Mg Capsule., 20 MG PO DAILY, #30 CAP 06/07/18 Discontinued Scripts Furosemide* (Furosemide*) 20 Mg Tablet, 20 MG PO DAILY for 30 Days, #60 TAB Prov:CRISTIAN JENKINS 06/09/18 [Potassium Chloride (Sr)] 8 MEQ CAPSR No Conflict Check, 8 MEQ PO DAILY for 30 Days Prov:CRISTIAN JENKINS 06/09/18 Allergies Allergies: Coded Allergies: palm oil (Verified Allergy, Intermediate, 10/20/18) PMhx/Soc History of Surgery: Yes (stent placement ) Anesthesia Reaction: No Hx Neurological Disorder: No Hx Respiratory Disorders: No Hx Cardiac Disorders: Yes (HTN, MD, CHF) Hx Psychiatric Problems: Yes (anxiety) Hx Miscellaneous Medical Probl: Yes (stroke sep 2018) Hx Alcohol Use: Yes (wine on weekends) Hx Substance Use: No Hx Tobacco Use: Yes (quit smoking 25 years ago) Smoking Status: Former smoker FmHx Family History: No coronary disease Physical Exam Vitals Vital Signs Date Temp Pulse Resp B/P (MAP) Pulse Ox O2 O2 Flow FiO2 Time Delivery Rate 10/20/18 98.5 71 20 136/72 100 Room Air 14:30 (93) 10/20/18 Nasal 2 11:05 Cannula 10/20/18 98.5 72 18 148/70 97 10:33 (96) Physical Exam Const: Well-developed, well-nourished Head: Atraumatic, normocephalic Eyes: Normal Conjunctiva, PERRLA, EOMI, normal sclera, no nystagmus ENT: Normal External Ears, Nose and Mouth, moist mucus membranes. Neck: Full range of motion. No meningismus, no lymphadenopathy. Resp: Clear to auscultation bilaterally, no wheezing, rhonchi, rales Cardio: Regular rate and rhythm, no murmurs, S1 S2 present Abd: Soft, non tender x 4, non distended. Normal bowel sounds, no guarding or rebound, no pulsitile abdominal masses or bruits Skin: No petechiae or rashes, no ecchymosis , no maculopapular rash Back: No midline or flank tenderness Ext: No cyanosis, or edema, FROM x 4, normal inspection, neurovascularly intact x 4 Neur: Awake and alert, right facial weakness, right upper and lower extremity strength 34/5, sensation intact x 4, no focal findings, cerebellum intact Psych: Normal Mood and Affect Result Diagram: 10/20/18 1208 10/20/18 1208 Results 24 hrs Laboratory Tests Test 10/20/18 12:08 White Blood Count 5.0 10^3/ul Red Blood Count 4.46 10^6/ul Hemoglobin 13.4 g/dl Hematocrit 41.4 % Mean Corpuscular Volume 92.8 fl Mean Corpuscular Hemoglobin 30.0 pg Mean Corpuscular Hemoglobin Concent 32.4 g/dl Red Cell Distribution Width 11.9 % Platelet Count 193 10^3/UL Mean Platelet Volume 11.5 fl Immature Granulocytes % 0.200 % Neutrophils % 49.3 % Lymphocytes % 36.3 % Monocytes % 9.0 % Eosinophils % 4.2 % Basophils % 1.0 % Nucleated Red Blood Cells % 0.0 /100WBC Immature Granulocytes # 0.010 10^3/ul Neutrophils # 2.5 10^3/ul Lymphocytes # 1.8 10^3/ul Monocytes # 0.5 10^3/ul Eosinophils # 0.2 10^3/ul Basophils # 0.1 10^3/ul Nucleated Red Blood Cells # 0.0 10^3/ul Prothrombin Time 13.8 Sec Prothrombin Time Ratio 1.1 INR International Normalized Ratio 1.05 Activated Partial Thromboplast Time 35.4 Sec Sodium Level 145 mmol/L Potassium Level 3.0 mmol/L Chloride Level 103 mmol/L Carbon Dioxide Level 33 mmol/L Anion Gap 9 Blood Urea Nitrogen 17 mg/dl Creatinine 0.94 mg/dl Est Glomerular Filtrat Rate mL/min > 60 mL/min Glucose Level 91 mg/dl Calcium Level 9.9 mg/dl Total Bilirubin 0.6 mg/dl Direct Bilirubin 0.00 mg/dl Indirect Bilirubin 0.6 mg/dl Aspartate Amino Transf (AST/SGOT) 27 IU/L Alanine Aminotransferase (ALT/SGPT) 29 IU/L Alkaline Phosphatase 78 IU/L Troponin I 0.017 ng/ml Total Protein 7.7 g/dl Albumin 4.4 g/dl Globulin 3.30 g/dl Albumin/Globulin Ratio 1.33 Triglycerides Level 78 mg/dl Cholesterol Level 128 mg/dl LDL Cholesterol, Calculated 84 mg/dl HDL Cholesterol 28 mg/dl Cholesterol/HDL Ratio 4.5 RATIO Current Medications Medications Dose Sig/Ankush Start Time Status Last (Trade) Ordered Route PRN Stop Time Admin Dose Reason Admin Sodium 1,000 ml @ Q1H STAT 10/20/18 DC 10/20/18 Chloride 1,000 mls/hr IV 11:10 11:33 10/20/18 12:09 Aspirin 325 mg ONCE STAT 10/20/18 DC 10/20/18 (Aspirin) PO 11:10 11:32 10/20/18 11:12 Procedures/MDM MR #: [id number] DOS: 10/20/18 1110 Ordering MD: LUIS GOODSON DO Location: E/R Room/Bed: PROCEDURE: XR Chest. TECHNIQUE: Single frontal radiograph. CLINICAL INDICATION: Possible Stroke COMPARISON: CR CHEST 08/25/2016. FINDINGS: Low lung volumes. Bibasilar atelectasis. Decrease in central vascular congestion compared to the prior radiograph 08/25/2016. No evidence of focal consolidation, pneumothorax, or pleural effusion. Mild to moderate cardiomegaly persists. No acute osseous abnormality identified within the visualized thorax. Overlying soft tissues are equally unremarkable. IMPRESSION: Mild to moderate cardiomegaly. No evidence of acute cardiopulmonary process, allowing for low lung volumes and bibasilar atelectasis. RPTAT: EE Robret Sanders Physician Date Time Electronically viewed and signed by Robert Sanders Physician on 10/20/2018 11:43 rP/ CC: LUIS GOODSON DO [id number] MR #: [id number] DOS: 10/20/18 1110 Ordering MD: LUIS GOODSON DO Location: E/R Room/Bed: PROCEDURE: CT Brain without contrast. CLINICAL INDICATION: Right side paralysis for 1 month. TECHNIQUE: A CT of the brain without contrast was performed utilizing axial sections from the skull base through the vertex. The patient was scanned without intravenous contrast enhancement. Sagittal and coronal reformatted images were obtained using the data from the axial images. Total exam DLP is 634.23 mGy-cm. CTDIvol is 38.38 mGy. One or more of the following dose reduction techniques were used: Automated exposure control, adjustment of the mA and/or kV according to patient size, use of iterative reconstruction technique. DICOM images are available. COMPARISON: None available FINDINGS: There is normal tinoco-white matter differentiation. The ventricles and cisterns are normal. There is an old lacunar infarct in the right basal ganglia measuring 1.3 x 0.6 cm. There is an old infarct in the left side of the justice measuring 1.5 x 0.8 cm. There is no recent infarct. There is no intracranial hemorrhage or space-occupying lesion. There is no skull fracture or lytic lesion. IMPRESSION: 1. Old infarct in the right basal ganglia and left side of the justice. 2. No intracranial hemorrhage. 3. Otherwise unremarkable noncontrast CT scan of the brain. RPTAT: QQ .Saw Rooney MD, MD Date Time Electronically viewed and signed by .Saw Rooney MD, MD on 10/20/2018 12:58 .R/ CC: LUIS GOODSON DO [id number] EKG: Rate/Rhythm: Will sinus rhythm with inverted T waves in the lateral leads QRS, ST, QT: NORMAL IA, QRS, QT] Impression: NORMAL EKG Spoke with Dr. Hodgson of panel and it was decided that he is okay to go home as he is a month out of the stroke. Will be discharge with Dr. Green recommendations of 81 mg of aspirin, atorvastatin 40 mg a day and he needs to contact his primary on Tuesday to arrange for physical therapy for rehab. I will get him a walking cane from the ER and discharged with follow-up Departure Diagnosis: Primary Impression: CVA (cerebral vascular accident) CVA mechanism: unspecified Qualified Codes: I63.9 - Cerebral infarction, unspecified Condition: Stable LUIS GOODSON DO Oct 20, 2018 11:35
[2018-10-20] MEDS ORDERED: ASPI-817 PO (15:56)
[2018-10-20] MEDS ORDERED: ATOR40TA68 PO (15:56)
[2018-10-20 18:05] VITALS: BP 146/80; PULSE 69; RESP 16
== END 2018-10-20 18:10 | disposition home or self-care (01) ==
LOC: E/R 10:30
DX: I63.9 Cerebral infarction, unspecified (principal); I10 Essential (primary) hypertension; I50.9 Heart failure, unspecified; I25.2 Old myocardial infarction; R40.2142 Coma scale, eyes open, spontaneous, at arrival to emergency department; R40.2252 Coma scale, best verbal response, oriented, at arrival to emergency department; R40.2362 Coma scale, best motor response, obeys commands, at arrival to emergency department; Z98.61 Coronary angioplasty status; Z79.82 Long term (current) use of aspirin; Z87.891 Personal history of nicotine dependence
CPT/HCPCS: 36415; 70450; 71045; 80053; 80061; 84484; 85025; 85610; 85730; J7030; Z7502; Z7610; 93005

== ENCOUNTER 2019-02-08 09:12 | Day surgery (SDC) | payer OTHER ==
[~2019-02-08] VITALS: Ht 182.9 cm; Wt 107.6 kg
[~2019-02-08 09:12] MED LIST changes: +ASPI-817 PO; +ATOR40TA68 PO; -FURO20TA3 PO; -OMEP20CA16 PO; -POTASSIUM CHLORIDE PO
[2019-02-08 10:32] VITALS: Ht 182.9 cm; Wt 107.6 kg
[2019-02-08] MEDS ORDERED: LIDOCAINE 100 MG SYRINGE ONE (11:07)
[2019-02-08] MEDS ORDERED: PROPOFOL 40 ML ONE ×2 (11:07→11:35)
[2019-02-08 11:15] VITALS: BP 150/76; PULSE 54; RESP 13
--- NOTE | 2019-02-08 11:16 | PREAC ---
Date/Time of Note Date/Time of Note DATE: 02/08/19 TIME: 11:14 Anesthesia Eval and Record Evaluation Time Pre-Procedure Interview DATE: 02/08/19 TIME: 11:14 Age 63 Sex male NPO: 8 hrs Preoperative diagnosis screening for malignant neoplasms of colon Planned procedure colonoscopy Past Medical History Past Medical History: Includes Cardio: HTN, CAD, PTCA/Stent, CHF (EF 45%) Endo: Hypothyroid Neuro: CVA GI: Obesity Surgery & Anesthesia Issues No known issue Meds Anticoagulation: No Beta Carrie within 24 hr: No Reason Beta Carrie not given: Pt. not on B-Carrie Active Scripts Aspirin* (Aspirin* EC) 81 Mg Tablet.dr, 81 MG PO DAILY, #120 TAB Prov:LUIS GOODSON DO 10/20/18 Reported Medications Tamsulosin Hcl* (Flomax*) 0.4 Mg Cap.er.24h, 0.4 MG PO DAILY, CAP 06/07/18 Nifedipine* (Nifedipine ER*) 90 Mg Tablet.er, 90 MG PO DAILY, TAB 06/07/18 Benazepril Hcl* (Benazepril Hcl*) 40 Mg Tablet, 80 MG PO DAILY, #30 TAB 06/07/18 Atorvastatin* (Atorvastatin*) 80 Mg Tablet, 80 MG PO QHS, #30 TAB 06/07/18 Discontinued Reported Medications Aspirin (Low Dose Aspirin) 81 Mg Tablet.dr, 81 MG PO DAILY, #30 TAB 06/07/18 Levothyroxine Sodium* (Levoxyl*) 100 Mcg Tablet, 100 MCG PO BEFORE BREAKFAST, #30 TAB 06/07/18 Discontinued Scripts Atorvastatin* (Atorvastatin*) 40 Mg Tablet, 40 MG PO QHS, #30 TAB Prov:LUIS GOODSON DO 10/20/18 Meds reviewed: Yes Allergies Coded Allergies: No Known Drug Allergies (Verified Allergy, Unknown, 02/08/19) Allergies Reviewed: Yes Labs/Studies Labs Reviewed: Other (NA) test: N/A Pre-procedure Exam Airway: Adequate mouth opening Mallampati: Mallampati II Teeth: Normal Lung: Normal Heart: Normal ASA Physical Status ASA physical status: 3 Emergency: None Planned Anesthetic General/MAC: MAC Pre-operative Attestations Prior to commencing anesthesia and surgery, the patient was re-evaluated, there was verification of: *The patient's identity *The results of appropriate recent lab work and preoperative vital signs *The above evaluation not changing prior to induction *Anesthetic plan, risk benefits, alternative and complications discussed with patient/family; questions answered; patient/family understands, accepts and wishes to proceed. JIL YEAGER Feb 08, 2019 11:16
[2019-02-08] MEDS ORDERED: ETOMIDATE 20 MG INJ ONE ×2 (11:17→11:36)
[2019-02-08] MEDS ORDERED: VASOPRESSIN 20 UNITS INJ ONE (11:17)
--- NOTE | 2019-02-08 11:35 | PAC ---
Date/Time of Note Date/Time of Note DATE: 02/08/19 TIME: 11:35 Post-Anesthesia Notes Post-Anesthesia Note Last documented vital signs Vital Signs Date Temp Pulse Resp B/P (MAP) Pulse Ox O2 O2 Flow FiO2 Time Delivery Rate 02/08/19 98.2 54 13 150/76 100 Room Air 11:35 (100) Activity: WNL Respiratory function: WNL Cardiovascular function: WNL Mental status: Baseline Pain reasonably controlled: Yes Hydration appropriate: Yes Nausea/Vomiting absent: Yes ANNELIESE SINGER MD Feb 08, 2019 11:35
[2019-02-08 12:00] VITALS: BP 169/83; RESP 16
== END 2019-02-08 13:54 | disposition home or self-care (01) ==
LOC: GIL 09:12
PROVIDERS: ATTEND Internal Medicine Gastroenterology
DX: Z12.11 Encounter for screening for malignant neoplasm of colon (principal); K64.4 Residual hemorrhoidal skin tags; K57.30 Diverticulosis of large intestine without perforation or abscess without bleeding; I10 Essential (primary) hypertension; I25.10 Atherosclerotic heart disease of native coronary artery without angina pectoris; E03.9 Hypothyroidism, unspecified; Z86.73 Personal history of transient ischemic attack (TIA), and cerebral infarction without residual deficits; Z79.82 Long term (current) use of aspirin
CPT/HCPCS: 45378; J2001; Z7610